=== PATIENT | male | born 1965 | race Two or more races ===

== ENCOUNTER 2017-02-12 11:00 | Inpatient (IN) | payer OTHER ==
[2017-02-12 11:39] VITALS: BMI 22.1
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
[2017-02-12] MEDS ORDERED: P-EPHED 60MG/TRIPROLIDI 2.5MG TABLET PO PRN (13:59)
[2017-02-12] MEDS ORDERED: guaiFENesin/D-METHORPHAN HB 10 ML UNIT-DOSE CUPS PO PRN (13:59)
[2017-02-12] MEDS ORDERED: MAG HYDROX/AL HYDROX/SIMETH 30 ML UNIT-DOSE CUP PO PRN (13:59)
[2017-02-12] MEDS ORDERED: ACETAMINOPHEN 325 MG TABLET (FP) PO PRN (13:59)
[2017-02-12] MEDS ORDERED: MAGNESIUM HYDROX 2400MG/30ML ORAL SUSPENSION 30 ML CUP PO PRN (13:59)
[2017-02-12] MEDS ORDERED: LOPERAMIDE HCL 2 MG CAPSULE PO PRN (13:59)
[2017-02-12] MEDS ORDERED: MAGNESIUM CITRATE 300 ML BOTTLE PO PRN (13:59)
[2017-02-12] MEDS ORDERED: IBUPROFEN 400 MG TABLET (FP) PO PRN (13:59)
[2017-02-12] MEDS ORDERED: MENTHOL/PHENOL 1 EACH UD MM PRN (13:59)
[2017-02-12] MEDS ORDERED: METHADONE HCL 10 MG TABLET (FOR DETOX USE ONLY) PO ONE ×2 (14:07→23:00)
[2017-02-12] MEDS: diazePAM 5 MG TABLET PO PRN ×2 (15:12→22:06)
[2017-02-12] MEDS: NICOTINE 21 MG/24 HOURS TOPICAL PATCH TD SCH (15:13)
[2017-02-12 17:30] LABS: URINE APPEARANCE CLEAR; URINE BILIRUBIN NEGATIVE (NEGATIVE); URINE BLOOD NEGATIVE (NEGATIVE); URINE COLOR YELLOW; URINE GLUCOSE (UA) NEGATIVE (NEGATIVE); URINE KETONE NEGATIVE (NEGATIVE); URINE NITRITE NEGATIVE (NEGATIVE); URINE PROTEIN NEGATIVE (NEGATIVE); URINE UROBILINOGEN NEGATIVE mg/dL (0.2-1.0)
[2017-02-12 19:29] LABS: URINE LEUK ESTERASE Negative (NEGATIVE)
[2017-02-12] MEDS: THIAMINE HCL 100 MG TABLET (FP) PO SCH (22:06)
[2017-02-13] MEDS: diazePAM 5 MG TABLET PO PRN ×4 (05:50→20:01)
[2017-02-13] MEDS ORDERED: METHADONE HCL 10 MG TABLET (FOR DETOX USE ONLY) PO ONE (10:00)
[2017-02-13 10:07] LABS: MCHC 32.3 g/dl (32.0-35.9); MEAN CELL VOLUME 89.7 fl (80-96); PLATELET COUNT 273 K/MM3 (134-434); RDW 14.4 % (11.9-15.9); WHITE BLOOD COUNT 12.4 K/mm3 (4.0-10.0)
[2017-02-13 10:12] LABS: ALBUMIN 4.3 g/dl (3.4-5.0); ANION GAP 9 (8-16); CALCIUM 9.3 mg/dL (8.5-10.1); CO2 28 mmol/L (21-32); CREATININE 1.2 mg/dL (0.7-1.3); GLUCOSE,RANDOM 90 mg/dL (74-106); SGOT/AST 26 U/L (15-37); SGPT/ALT 35 U/L (12-78)
[2017-02-13 10:14] LABS: ALK PHOS 62 U/L (45-117); BILIRUBIN,TOTAL 0.6 mg/dL (0.2-1.0); TOT PROT 7.9 g/dl (6.4-8.2)
[2017-02-13] MEDS: PRENATAL VITAMINS W/ FOLIC ACID TABLET (FP) PO SCH (10:19)
[2017-02-13] MEDS: NICOTINE 21 MG/24 HOURS TOPICAL PATCH TD SCH (10:19)
--- NOTE | 2017-02-13 11:14 | PN ---
BHS COWS - Scale Resting Pulse: 0= DC 80 or Below Sweatin= Chills/Flushing Restless Observation: 3= Extraneous Movement Pupil Size: 0= Normal to Room Light Bone or Joint Aches: 4=Acute Joint/Muscle Pain Runny Nose/ Eye Tearin= Nasal Congestion GI Upset > 30mins: 0= None Tremor Observation of Outstretched Hands: 1= Tremor [place], Not Seen Yawning Observation: 1= 1-2x During Session Anxiety or Irritability: 2=Irritable/Anxious Goose Flesh Skin: 0=Smooth Skin COWS Score: 13 BHS Progress Note (SOAP) Subjective: ANXIETY,SWEATS,FATIGUE. Objective: 02/13/17 11:14 Vital Signs Temperature 97.9 F 02/13/17 05:51 Pulse Rate 58 L 02/13/17 09:18 Respiratory Rate 18 02/13/17 09:18 Blood Pressure 141/95 02/13/17 09:18 O2 Sat by Pulse Oximetry (%) Laboratory Last Values WBC 12.4 K/mm3 (4.0-10.0) H 02/13/17 05:45 RBC 4.43 M/mm3 (4.00-5.60) 02/13/17 05:45 Hgb 12.8 GM/dL (11.7-16.9) 02/13/17 05:45 Hct 39.7 % (35.4-49) 02/13/17 05:45 MCV 89.7 fl (80-96) 02/13/17 05:45 MCH 29.0 pg (25.7-33.7) 02/13/17 05:45 MCHC 32.3 g/dl (32.0-35.9) 02/13/17 05:45 RDW 14.4 % (11.9-15.9) 02/13/17 05:45 Plt Count 273 K/MM3 (134-434) 02/13/17 05:45 MPV 9.0 fl (7.5-11.1) 02/13/17 05:45 Sodium 139 mmol/L (136-145) 02/13/17 05:45 Potassium 4.3 mmol/L (3.5-5.1) 02/13/17 05:45 Chloride 102 mmol/L (98-107) 02/13/17 05:45 Carbon Dioxide 28 mmol/L (21-32) 02/13/17 05:45 Anion Gap 9 (8-16) 02/13/17 05:45 BUN 10 mg/dL (7-18) 02/13/17 05:45 Creatinine 1.2 mg/dL (0.7-1.3) 02/13/17 05:45 Creat Clearance w eGFR > 60 (>60) 02/13/17 05:45 Random Glucose 90 mg/dL (74-106) 02/13/17 05:45 Calcium 9.3 mg/dL (8.5-10.1) 02/13/17 05:45 Total Bilirubin 0.6 mg/dL (0.2-1.0) D 02/13/17 05:45 AST 26 U/L (15-37) 02/13/17 05:45 ALT 35 U/L (12-78) D 02/13/17 05:45 Alkaline Phosphatase 62 U/L (45-117) 02/13/17 05:45 Total Protein 7.9 g/dl (6.4-8.2) 02/13/17 05:45 Albumin 4.3 g/dl (3.4-5.0) 02/13/17 05:45 Urine Color Yellow 02/12/17 15:00 Urine Appearance Clear 02/12/17 15:00 Urine pH 6.0 (5.0-8.0) 02/12/17 15:00 Ur Specific [place] 1.018 (1.001-1.035) 02/12/17 15:00 Urine Protein Negative (NEGATIVE) 02/12/17 15:00 Urine Glucose (UA) Negative (NEGATIVE) 02/12/17 15:00 Urine Ketones Negative (NEGATIVE) 02/12/17 15:00 Urine Blood Negative (NEGATIVE) 02/12/17 15:00 Urine Nitrite Negative (NEGATIVE) 02/12/17 15:00 Urine Bilirubin Negative (NEGATIVE) 02/12/17 15:00 Urine Urobilinogen Negative mg/dL (0.2-1.0) 02/12/17 15:00 Ur Leukocyte Esterase Negative (NEGATIVE) 02/12/17 15:00 Assessment: 02/13/17 11:14 WITHDRAWAL SX Plan: CONTINUE DETOX
--- NOTE | 2017-02-13 12:13 | EKG ---
Test Reason : Blood Pressure : / mmHG Vent. Rate : 053 BPM Atrial Rate : 053 BPM P-R Int : 144 ms QRS Dur : 098 ms QT Int : 412 ms P-R-T Axes : 070 069 049 degrees QTc Int : 386 ms SINUS BRADYCARDIA VOLTAGE CRITERIA FOR LEFT VENTRICULAR HYPERTROPHY ABNORMAL ECG NO PREVIOUS ECGS AVAILABLE Confirmed by LELIA BARROSO MD ([id number]) on 02/13/2017 12:13:12 PM Referred By: Confirmed By:LELIA BARROSO MD
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
[2017-02-13] MEDS: ZOLPIDEM TARTRATE 10 MG TABLET (PARK CARE ONLY) PO PRN (22:06)
[2017-02-13] MEDS: THIAMINE HCL 100 MG TABLET (FP) PO SCH (22:06)
[2017-02-14] MEDS: diazePAM 5 MG TABLET PO PRN ×4 (05:33→19:03)
[2017-02-14] MEDS ORDERED: METHADONE HCL 5 MG TABLET (FOR DETOX USE ONLY) PO ONE (10:00)
[2017-02-14] MEDS: NICOTINE 21 MG/24 HOURS TOPICAL PATCH TD SCH (10:42)
[2017-02-14] MEDS: PRENATAL VITAMINS W/ FOLIC ACID TABLET (FP) PO SCH (10:42)
--- NOTE | 2017-02-14 17:16 | PN ---
[facility] CIWA - CIWA Score Nausea/Vomitin-No Nausea/No Vomiting Muscle Tremors: 2 Anxiety: 4-Mod. Anxious/Guarded Agitation: 3 Paroxysmal Sweats: 3 Orientation: 0-Oriented Tacttile Disturbances: 3-Moderate Itch/Numb/Burn Auditory Disturbances: 0-None Visual Disturbances: 2-Mild Sensitivity Headache: 0-None Present CIWA-Ar Total Score: 17 BHS Progress Note (SOAP) Subjective: Constipation, Chills, Body Aches, Stomach Cramping, Sweating. Objective: PT. A & O X 3, OBSERVED AMBULATING ON UNIT. NO ACUTE DISTRESS. 02/14/17 17:15 Vital Signs Temperature 98.2 F 02/14/17 17:04 Pulse Rate 81 02/14/17 17:04 Respiratory Rate 18 02/14/17 17:04 Blood Pressure 123/78 02/14/17 17:04 O2 Sat by Pulse Oximetry (%) Laboratory Tests 02/12/17 02/13/17 02/13/17 15:00 05:45 05:45 WBC 12.4 H RBC 4.43 Hgb 12.8 Hct 39.7 MCV 89.7 MCH 29.0 MCHC 32.3 RDW 14.4 Plt Count 273 MPV 9.0 Sodium 139 Potassium 4.3 Chloride 102 Carbon Dioxide 28 Anion Gap 9 BUN 10 Creatinine 1.2 Creat Clearance w eGFR > 60 Random Glucose 90 Calcium 9.3 Total Bilirubin 0.6 D AST 26 ALT 35 D Alkaline Phosphatase 62 Total Protein 7.9 Albumin 4.3 Urine Color Yellow Urine Appearance Clear Urine pH 6.0 Ur Specific [place] 1.018 Urine Protein Negative Urine Glucose (UA) Negative Urine Ketones Negative Urine Blood Negative Urine Nitrite Negative Urine Bilirubin Negative Urine Urobilinogen Negative Ur Leukocyte Esterase Negative RPR Titer 02/13/17 05:45 WBC RBC Hgb Hct MCV MCH MCHC RDW Plt Count MPV Sodium Potassium Chloride Carbon Dioxide Anion Gap BUN Creatinine Creat Clearance w eGFR Random Glucose Calcium Total Bilirubin AST ALT Alkaline Phosphatase Total Protein Albumin Urine Color Urine Appearance Urine pH Ur Specific [place] Urine Protein Urine Glucose (UA) Urine Ketones Urine Blood Urine Nitrite Urine Bilirubin Urine Urobilinogen Ur Leukocyte Esterase RPR Titer Nonreactive LABS NOTED. Assessment: 02/14/17 17:15 WITHDRAWAL SYMPTOMS. Plan: CONTINUE DETOX. INCREASE DAILY PO FLUID INTAKE. PRN MOM FOR CONSTIPATION.
[2017-02-14] MEDS: THIAMINE HCL 100 MG TABLET (FP) PO SCH (22:18)
[2017-02-14] MEDS: ZOLPIDEM TARTRATE 10 MG TABLET (PARK CARE ONLY) PO PRN (22:18)
[2017-02-15] MEDS: diazePAM 5 MG TABLET PO PRN ×2 (05:39→10:37)
[2017-02-15] MEDS ORDERED: METHADONE HCL 5 MG TABLET (FOR DETOX USE ONLY) PO ONE (10:00)
[2017-02-15] MEDS: PRENATAL VITAMINS W/ FOLIC ACID TABLET (FP) PO SCH (10:37)
[2017-02-15] MEDS: NICOTINE 21 MG/24 HOURS TOPICAL PATCH TD SCH (10:38)
--- NOTE | 2017-02-15 14:40 | PN ---
BHS Progress Note (SOAP) Subjective: Anxious, Sweating. Objective: PT. A & O X 3, OBSERVED AMBULATING ON UNIT. NO ACUTE DISTRESS. 02/15/17 14:38 Vital Signs Temperature 98.3 F 02/15/17 13:40 Pulse Rate 71 02/15/17 13:40 Respiratory Rate 20 02/15/17 13:40 Blood Pressure 141/89 02/15/17 13:40 O2 Sat by Pulse Oximetry (%) Laboratory Tests 02/12/17 02/13/17 02/13/17 15:00 05:45 05:45 WBC 12.4 H RBC 4.43 Hgb 12.8 Hct 39.7 MCV 89.7 MCH 29.0 MCHC 32.3 RDW 14.4 Plt Count 273 MPV 9.0 Sodium 139 Potassium 4.3 Chloride 102 Carbon Dioxide 28 Anion Gap 9 BUN 10 Creatinine 1.2 Creat Clearance w eGFR > 60 Random Glucose 90 Calcium 9.3 Total Bilirubin 0.6 D AST 26 ALT 35 D Alkaline Phosphatase 62 Total Protein 7.9 Albumin 4.3 Urine Color Yellow Urine Appearance Clear Urine pH 6.0 Ur Specific [place] 1.018 Urine Protein Negative Urine Glucose (UA) Negative Urine Ketones Negative Urine Blood Negative Urine Nitrite Negative Urine Bilirubin Negative Urine Urobilinogen Negative Ur Leukocyte Esterase Negative RPR Titer 02/13/17 05:45 WBC RBC Hgb Hct MCV MCH MCHC RDW Plt Count MPV Sodium Potassium Chloride Carbon Dioxide Anion Gap BUN Creatinine Creat Clearance w eGFR Random Glucose Calcium Total Bilirubin AST ALT Alkaline Phosphatase Total Protein Albumin Urine Color Urine Appearance Urine pH Ur Specific [place] Urine Protein Urine Glucose (UA) Urine Ketones Urine Blood Urine Nitrite Urine Bilirubin Urine Urobilinogen Ur Leukocyte Esterase RPR Titer Nonreactive LABS NOTED. Assessment: 02/15/17 14:38 WITHDRAWAL SYMPTOMS. Plan: CONTINUE DETOX.
[2017-02-15] MEDS: hydrOXYzine PAMOATE 50 MG CAPSULE (FP) PO PRN (14:53)
[2017-02-15] MEDS: ZOLPIDEM TARTRATE 10 MG TABLET (PARK CARE ONLY) PO PRN (22:18)
[2017-02-15] MEDS: THIAMINE HCL 100 MG TABLET (FP) PO SCH (22:18)
[2017-02-16] MEDS ORDERED: METHADONE HCL 10 MG TABLET (FOR DETOX USE ONLY) PO ONE (10:00)
[2017-02-16] MEDS: PRENATAL VITAMINS W/ FOLIC ACID TABLET (FP) PO SCH (10:25)
[2017-02-16] MEDS: NICOTINE 21 MG/24 HOURS TOPICAL PATCH TD SCH (10:25)
--- NOTE | 2017-02-16 13:02 | PN ---
BHS Progress Note (SOAP) Subjective: Stomach Cramping, Nausea, Diarrhea, Anxious. Objective: PT. A & O X 2 (UNCERTAIN ABOUT DAY / DATE). PT. OBSERVED AMBULATING ON UNIT. 02/16/17 12:57 Vital Signs Temperature 97.5 F L 02/16/17 09:14 Pulse Rate 66 02/16/17 09:14 Respiratory Rate 20 02/16/17 09:14 Blood Pressure 140/95 02/16/17 09:14 O2 Sat by Pulse Oximetry (%) Laboratory Tests 02/12/17 02/13/17 02/13/17 15:00 05:45 05:45 WBC 12.4 H RBC 4.43 Hgb 12.8 Hct 39.7 MCV 89.7 MCH 29.0 MCHC 32.3 RDW 14.4 Plt Count 273 MPV 9.0 Sodium 139 Potassium 4.3 Chloride 102 Carbon Dioxide 28 Anion Gap 9 BUN 10 Creatinine 1.2 Creat Clearance w eGFR > 60 Random Glucose 90 Calcium 9.3 Total Bilirubin 0.6 D AST 26 ALT 35 D Alkaline Phosphatase 62 Total Protein 7.9 Albumin 4.3 Urine Color Yellow Urine Appearance Clear Urine pH 6.0 Ur Specific [place] 1.018 Urine Protein Negative Urine Glucose (UA) Negative Urine Ketones Negative Urine Blood Negative Urine Nitrite Negative Urine Bilirubin Negative Urine Urobilinogen Negative Ur Leukocyte Esterase Negative RPR Titer 02/13/17 05:45 WBC RBC Hgb Hct MCV MCH MCHC RDW Plt Count MPV Sodium Potassium Chloride Carbon Dioxide Anion Gap BUN Creatinine Creat Clearance w eGFR Random Glucose Calcium Total Bilirubin AST ALT Alkaline Phosphatase Total Protein Albumin Urine Color Urine Appearance Urine pH Ur Specific [place] Urine Protein Urine Glucose (UA) Urine Ketones Urine Blood Urine Nitrite Urine Bilirubin Urine Urobilinogen Ur Leukocyte Esterase RPR Titer Nonreactive LABS NOTED. Assessment: 02/16/17 13:02 WITHDRAWAL SYMPTOMS. Plan: CONTINUE DETOX.
[2017-02-16] MEDS: ZOLPIDEM TARTRATE 10 MG TABLET (PARK CARE ONLY) PO PRN (21:59)
[2017-02-16] MEDS: THIAMINE HCL 100 MG TABLET (FP) PO SCH (22:28)
[2017-02-16] MEDS: hydrOXYzine PAMOATE 50 MG CAPSULE (FP) PO PRN (22:28)
[2017-02-16] MEDS ORDERED: cloNIDine HCL 0.1 MG TABLET PO ONE (23:37)
[2017-02-17] MEDS ORDERED: METHADONE HCL 5 MG TABLET (FOR DETOX USE ONLY) PO ONE (06:00)
[2017-02-17 09:51] VITALS: BP 129/96; PULSE 64; TEMP 99.2
[2017-02-17] MEDS: NICOTINE 21 MG/24 HOURS TOPICAL PATCH TD SCH (10:17)
[2017-02-17] MEDS: PRENATAL VITAMINS W/ FOLIC ACID TABLET (FP) PO SCH (10:17)
--- NOTE | 2017-02-17 12:33 | DS ---
[facility] Detox Discharge Summary Admission Date: 02/12/17 Discharge Date: 02/17/17 - History Present History: Alcohol Dependence, Cannabis Dependence, Sedative Dependence Pertinent Past History: Denies - Physical Exam Results Vital Signs: Vital Signs Temperature 99.2 F 02/17/17 09:50 Pulse Rate 64 02/17/17 09:50 Respiratory Rate 18 02/17/17 09:50 Blood Pressure 129/96 02/17/17 09:50 O2 Sat by Pulse Oximetry (%) Pertinent Admission Physical Exam Findings: Withdrawal symptoms - Treatment Hospital Course: Detox Protocol Followed, Detoxed Safely, Responded well, Discharged Condition Good - Medication Discharge Medications: Ambulatory Orders NK [No Known Home Medication] 02/12/17 - Diagnosis (1) Benzodiazepine dependence Status: Acute (2) Cannabis dependence Status: Chronic (3) Depression Status: Chronic (4) Insomnia secondary to depression with anxiety Status: Chronic (5) Nicotine dependence Status: Chronic Qualifiers: Nicotine product type: cigarettes Substance use status: in withdrawal Qualified Code(s): F17.213 - Nicotine dependence, cigarettes, with withdrawal (6) Opioid dependence with withdrawal Status: Chronic - AMA Did Patient Leave Against Medical Advice: No (F/U with PCP in 1-2 weeks)
== END 2017-02-17 10:47 | disposition other institution (70) | DRG 773 ==
LOC: YASAS 11:00 → Y3N 13:45
PROVIDERS: ADMIT Internal Medicine; ATTEND Internal Medicine
PROC: HZ2ZZZZ Detoxification Services for Substance Abuse Treatment (ICD-10-PCS; principal; 2017-02-12)
DX: F11.23 Opioid dependence with withdrawal (principal); F13.20 Sedative, hypnotic or anxiolytic dependence, uncomplicated; F12.20 Cannabis dependence, uncomplicated; F17.213 Nicotine dependence, cigarettes, with withdrawal; F32.9 Major depressive disorder, single episode, unspecified; F41.9 Anxiety disorder, unspecified; F51.05 Insomnia due to other mental disorder; R63.4 Abnormal weight loss; Z68.22 Body mass index [BMI] 22.0-22.9, adult; Z59.0 Homelessness
CPT/HCPCS: 36415; 80053; 81003; 85027; 86593; 93005; 93010

== ENCOUNTER 2017-02-17 12:05 | Inpatient (IN) | payer OTHER ==
[2017-02-17 13:21] VITALS: BMI 23.3
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
[2017-02-17] MEDS ORDERED: MAGNESIUM HYDROX 2400MG/30ML ORAL SUSPENSION 30 ML CUP PO PRN (14:16)
[2017-02-17] MEDS ORDERED: LOPERAMIDE HCL 2 MG CAPSULE PO PRN (14:16)
[2017-02-17] MEDS ORDERED: IBUPROFEN 400 MG TABLET (FP) PO PRN (14:16)
[2017-02-17] MEDS ORDERED: MAGNESIUM CITRATE 300 ML BOTTLE PO PRN (14:16)
[2017-02-17] MEDS ORDERED: NICOTINE POLACRILEX 2 MG GUM BUC PRN (14:16)
[2017-02-17] MEDS ORDERED: P-EPHED 60MG/TRIPROLIDI 2.5MG TABLET PO PRN (14:16)
[2017-02-17] MEDS ORDERED: ACETAMINOPHEN 325 MG TABLET (FP) PO PRN (14:16)
[2017-02-17] MEDS ORDERED: MENTHOL/PHENOL 1 EACH UD MM PRN (14:16)
[2017-02-17] MEDS ORDERED: guaiFENesin/D-METHORPHAN HB 10 ML UNIT-DOSE CUPS PO PRN (14:16)
[2017-02-17] MEDS ORDERED: MAG HYDROX/AL HYDROX/SIMETH 30 ML UNIT-DOSE CUP PO PRN (14:16)
--- NOTE | 2017-02-17 14:23 | HP ---
[facility] Rehab Assess/Revision - Admission History Admitted to Rehab from: [facility] Date of Admission to Rehab: 02/17/17 - Vital signs Vital Signs: Vital Signs Period Temp Pulse Resp BP Sys/Hopper Pulse Ox Last 24 Hr 98.1 F 65 20 142/89 - Findings Detox History & Physical reviewed: Yes Concur with findings: Yes Inpatient Rehab Admission - Initial Determination Are CD services needed?: Yes Free of communicable disease: Yes Not in need of hospitalization: Yes - Rehab Admission Criteria Previous failed treatment: Yes Poor recovery environment: Yes Comorbidities: Yes Lacks judgement: Yes Patient is meeting Inpatient Rehab admission criteria:: Yes
[2017-02-17] MEDS: THIAMINE HCL 100 MG TABLET (FP) PO SCH (21:38)
[2017-02-17] MEDS ORDERED: hydrOXYzine PAMOATE 50 MG CAPSULE (FP) PO ONE (23:21)
[2017-02-18] MEDS: PRENATAL VITAMINS W/ FOLIC ACID TABLET (FP) PO SCH (10:13)
[2017-02-18] MEDS: NICOTINE 21 MG/24 HOURS TOPICAL PATCH TD SCH (10:13)
[2017-02-18 11:59] LABS: HIV 1 & 2 AB NEGATIVE; HIV 1 AGp24 NEGATIVE
[2017-02-18] MEDS: GABAPENTIN 300 MG CAPSULE (FP) PO SCH ×2 (14:25→22:09)
[2017-02-18] MEDS: HYDROCHLOROTHIAZIDE 12.5 MG CAPSULE (FP) PO SCH (16:52)
[2017-02-18] MEDS ORDERED: SUVOREXANT 10 MG TABLET PO PRN (22:00)
[2017-02-18] MEDS: THIAMINE HCL 100 MG TABLET (FP) PO SCH (22:09)
[2017-02-18] MEDS: OLANZapine 10 MG TABLET PO SCH (22:09)
[2017-02-19] MEDS: GABAPENTIN 300 MG CAPSULE (FP) PO SCH ×3 (06:21→22:00)
[2017-02-19] MEDS: PRENATAL VITAMINS W/ FOLIC ACID TABLET (FP) PO SCH (09:56)
[2017-02-19] MEDS: HYDROCHLOROTHIAZIDE 12.5 MG CAPSULE (FP) PO SCH (09:56)
[2017-02-19] MEDS: NICOTINE 21 MG/24 HOURS TOPICAL PATCH TD SCH (09:56)
[2017-02-19] MEDS: OLANZapine 10 MG TABLET PO SCH (22:00)
[2017-02-19] MEDS: THIAMINE HCL 100 MG TABLET (FP) PO SCH (22:00)
[2017-02-20] MEDS: GABAPENTIN 300 MG CAPSULE (FP) PO SCH (06:31)
[2017-02-20] MEDS ORDERED: cloNIDine HCL 0.1 MG TABLET PO ONE (06:40)
[2017-02-20] MEDS: NICOTINE 21 MG/24 HOURS TOPICAL PATCH TD SCH (10:11)
[2017-02-20] MEDS: PRENATAL VITAMINS W/ FOLIC ACID TABLET (FP) PO SCH (10:11)
[2017-02-20] MEDS: HYDROCHLOROTHIAZIDE 12.5 MG CAPSULE (FP) PO SCH (10:11)
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
[2017-02-20] MEDS: NAPROXEN 500 MG TABLET (FP) PO SCH ×2 (12:04→22:04)
[2017-02-20] MEDS: PANTOPRAZOLE 40 MG TABLET (FP) PO SCH (12:04)
[2017-02-20] MEDS: MAG HYDROX/ALH/SMC/DPHA/LIDO 240 ML MOUTHWASH MM SCH ×4 (13:40→23:37)
[2017-02-20] MEDS ORDERED: GABAPENTIN 300 MG CAPSULE (FP) PO SCH (14:00)
[2017-02-20] MEDS: GABAPENTIN 400 MG CAPSULE (FP) PO SCH ×2 (15:26→22:04)
[2017-02-20] MEDS: THIAMINE HCL 100 MG TABLET (FP) PO SCH (22:04)
[2017-02-20] MEDS: OLANZapine 10 MG TABLET PO SCH (22:04)
[2017-02-21] MEDS: MAG HYDROX/ALH/SMC/DPHA/LIDO 240 ML MOUTHWASH MM SCH ×4 (06:32→23:50)
[2017-02-21] MEDS: GABAPENTIN 400 MG CAPSULE (FP) PO SCH ×3 (06:32→21:51)
[2017-02-21] MEDS: PRENATAL VITAMINS W/ FOLIC ACID TABLET (FP) PO SCH (09:57)
[2017-02-21] MEDS: NICOTINE 21 MG/24 HOURS TOPICAL PATCH TD SCH (09:57)
[2017-02-21] MEDS: HYDROCHLOROTHIAZIDE 12.5 MG CAPSULE (FP) PO SCH (09:57)
[2017-02-21] MEDS: PANTOPRAZOLE 40 MG TABLET (FP) PO SCH (09:57)
[2017-02-21] MEDS: NAPROXEN 500 MG TABLET (FP) PO SCH ×2 (09:57→21:51)
[2017-02-21] MEDS: THIAMINE HCL 100 MG TABLET (FP) PO SCH (21:51)
[2017-02-21] MEDS: OLANZapine 10 MG TABLET PO SCH (21:51)
[2017-02-22] MEDS: GABAPENTIN 400 MG CAPSULE (FP) PO SCH ×3 (06:15→21:16)
[2017-02-22] MEDS: MAG HYDROX/ALH/SMC/DPHA/LIDO 240 ML MOUTHWASH MM SCH ×4 (06:15→23:43)
[2017-02-22] MEDS: PANTOPRAZOLE 40 MG TABLET (FP) PO SCH (10:15)
[2017-02-22] MEDS: PRENATAL VITAMINS W/ FOLIC ACID TABLET (FP) PO SCH (10:15)
[2017-02-22] MEDS: NAPROXEN 500 MG TABLET (FP) PO SCH ×2 (10:16→21:16)
[2017-02-22] MEDS: HYDROCHLOROTHIAZIDE 12.5 MG CAPSULE (FP) PO SCH (10:16)
[2017-02-22] MEDS: NICOTINE 21 MG/24 HOURS TOPICAL PATCH TD SCH (10:16)
[2017-02-22] MEDS: THIAMINE HCL 100 MG TABLET (FP) PO SCH (21:16)
[2017-02-22] MEDS: SUVOREXANT 10 MG TABLET PO PRN (21:16)
[2017-02-22] MEDS: OLANZapine 10 MG TABLET PO SCH (21:16)
[2017-02-23] MEDS: MAG HYDROX/ALH/SMC/DPHA/LIDO 240 ML MOUTHWASH MM SCH ×4 (06:28→23:06)
[2017-02-23] MEDS: GABAPENTIN 400 MG CAPSULE (FP) PO SCH ×3 (06:28→22:00)
[2017-02-23] MEDS: PRENATAL VITAMINS W/ FOLIC ACID TABLET (FP) PO SCH (09:58)
[2017-02-23] MEDS: NICOTINE 21 MG/24 HOURS TOPICAL PATCH TD SCH (09:58)
[2017-02-23] MEDS: PANTOPRAZOLE 40 MG TABLET (FP) PO SCH (09:58)
[2017-02-23] MEDS: HYDROCHLOROTHIAZIDE 12.5 MG CAPSULE (FP) PO SCH (09:58)
[2017-02-23] MEDS: NAPROXEN 500 MG TABLET (FP) PO SCH ×2 (09:58→22:00)
[2017-02-23] MEDS: THIAMINE HCL 100 MG TABLET (FP) PO SCH (22:00)
[2017-02-23] MEDS: OLANZapine 10 MG TABLET PO SCH (22:00)
[2017-02-24] MEDS: MAG HYDROX/ALH/SMC/DPHA/LIDO 240 ML MOUTHWASH MM SCH ×4 (06:19→23:05)
[2017-02-24] MEDS: GABAPENTIN 400 MG CAPSULE (FP) PO SCH ×3 (06:19→21:51)
[2017-02-24] MEDS ORDERED: SUVOREXANT 10 MG TABLET PO PRN (08:28)
[2017-02-24] MEDS: PRENATAL VITAMINS W/ FOLIC ACID TABLET (FP) PO SCH (10:08)
[2017-02-24] MEDS: PANTOPRAZOLE 40 MG TABLET (FP) PO SCH (10:08)
[2017-02-24] MEDS: NAPROXEN 500 MG TABLET (FP) PO SCH ×2 (10:08→21:51)
[2017-02-24] MEDS: HYDROCHLOROTHIAZIDE 12.5 MG CAPSULE (FP) PO SCH (10:08)
[2017-02-24] MEDS: NICOTINE 21 MG/24 HOURS TOPICAL PATCH TD SCH (10:08)
[2017-02-24] MEDS: THIAMINE HCL 100 MG TABLET (FP) PO SCH (21:51)
[2017-02-24] MEDS: OLANZapine 10 MG TABLET PO SCH (21:51)
[2017-02-24] MEDS: SUVOREXANT 10 MG TABLET PO PRN (21:53)
[2017-02-25] MEDS: GABAPENTIN 400 MG CAPSULE (FP) PO SCH ×3 (06:27→21:40)
[2017-02-25] MEDS: MAG HYDROX/ALH/SMC/DPHA/LIDO 240 ML MOUTHWASH MM SCH ×4 (06:28→23:02)
[2017-02-25] MEDS: PRENATAL VITAMINS W/ FOLIC ACID TABLET (FP) PO SCH (10:01)
[2017-02-25] MEDS: NAPROXEN 500 MG TABLET (FP) PO SCH ×2 (10:01→21:40)
[2017-02-25] MEDS: PANTOPRAZOLE 40 MG TABLET (FP) PO SCH (10:01)
[2017-02-25] MEDS: HYDROCHLOROTHIAZIDE 12.5 MG CAPSULE (FP) PO SCH (10:01)
[2017-02-25] MEDS: NICOTINE 21 MG/24 HOURS TOPICAL PATCH TD SCH (10:01)
[2017-02-25] MEDS: THIAMINE HCL 100 MG TABLET (FP) PO SCH (21:40)
[2017-02-25] MEDS: OLANZapine 10 MG TABLET PO SCH (21:40)
[2017-02-26] MEDS: GABAPENTIN 400 MG CAPSULE (FP) PO SCH ×2 (06:18→13:30)
[2017-02-26] MEDS: MAG HYDROX/ALH/SMC/DPHA/LIDO 240 ML MOUTHWASH MM SCH ×2 (06:18→13:30)
[2017-02-26] MEDS: HYDROCHLOROTHIAZIDE 12.5 MG CAPSULE (FP) PO SCH (10:17)
[2017-02-26] MEDS: PANTOPRAZOLE 40 MG TABLET (FP) PO SCH (10:17)
[2017-02-26] MEDS: NAPROXEN 500 MG TABLET (FP) PO SCH (10:18)
[2017-02-26] MEDS: PRENATAL VITAMINS W/ FOLIC ACID TABLET (FP) PO SCH (10:18)
[2017-02-26] MEDS: NICOTINE 21 MG/24 HOURS TOPICAL PATCH TD SCH (10:18)
--- NOTE | 2017-02-26 15:05 | PN ---
BHS Progress Note (SOAP) Subjective: c/o athletes foot Objective: 02/26/17 15:04 Vital Signs - 24 hr 02/26/17 02/26/17 02/26/17 00:30 03:30 06:41 Temperature 97.8 F Pulse Rate 72 Respiratory 18 18 18 Rate Blood Pressure 135/84 02/26/17 10:00 Temperature Pulse Rate 86 Respiratory 18 Rate Blood Pressure 159/83 Laboratory Tests 02/18/17 07:00 HIV 1&2 Antibody Screen Negative HIV P24 Antigen Negative labs reviewed, hypertension Assessment: 02/26/17 15:05 essential hypertension, athletes foot start tinactin, aveeno soap
[2017-02-26] MEDS ORDERED: COLLOIDAL OATMEAL 1 BAR EACH TP PRN (15:30)
[2017-02-26] MEDS: HYDROCHLOROTHIAZIDE 25 MG TABLET (FP) PO SCH (17:29)
[2017-02-26] MEDS: NICOTINE 14 MG/24 HOURS TOPICAL PATCH TD SCH (17:30)
[2017-02-26] MEDS: THIAMINE HCL 100 MG TABLET (FP) PO SCH (21:22)
[2017-02-26] MEDS: OLANZapine 10 MG TABLET PO SCH (21:22)
[2017-02-26] MEDS: GABAPENTIN 100 MG CAPSULE (FP) PO SCH (21:23)
[2017-02-26] MEDS: TOLNAFTATE 1% CREAM 15 GM TUBE TP SCH (21:25)
[2017-02-27] MEDS: GABAPENTIN 100 MG CAPSULE (FP) PO SCH (06:07)
[2017-02-27 07:10] VITALS: TEMP 98.4
[2017-02-27] MEDS: NICOTINE 14 MG/24 HOURS TOPICAL PATCH TD SCH (10:05)
[2017-02-27] MEDS: HYDROCHLOROTHIAZIDE 25 MG TABLET (FP) PO SCH (10:05)
[2017-02-27] MEDS: PRENATAL VITAMINS W/ FOLIC ACID TABLET (FP) PO SCH (10:05)
[2017-02-27] MEDS: TOLNAFTATE 1% CREAM 15 GM TUBE TP SCH (10:05)
[2017-02-27 10:20] VITALS: BP 157/94; PULSE 84
[2017-02-27] MEDS ORDERED: amLODIPine BESYLATE 5 MG TABLET (FP) PO ONE (11:45)
[2017-02-27] MEDS ORDERED: amLODIPine BESYLATE 5 MG TABLET (FP) PO SCH (11:45)
== END 2017-02-27 12:10 | disposition home or self-care (01) | DRG 772 ==
LOC: YASAS 12:05 → Y3W 12:07
PROVIDERS: ADMIT Psychiatry & Neurology Psychiatry; ATTEND Psychiatry & Neurology Psychiatry
PROC: HZ42ZZZ Group Counseling for Substance Abuse Treatment, Cognitive-Behavioral (ICD-10-PCS; principal; 2017-02-17)
DX: F11.20 Opioid dependence, uncomplicated (principal); F13.20 Sedative, hypnotic or anxiolytic dependence, uncomplicated; F12.20 Cannabis dependence, uncomplicated; F17.210 Nicotine dependence, cigarettes, uncomplicated; F31.9 Bipolar disorder, unspecified; F60.2 Antisocial personality disorder; F19.24 Other psychoactive substance dependence with psychoactive substance-induced mood disorder; F19.282 Other psychoactive substance dependence with psychoactive substance-induced sleep disorder; I10 Essential (primary) hypertension; B35.3 Tinea pedis; K05.6 Periodontal disease, unspecified; M54.5 Low back pain; G89.29 Other chronic pain; M54.30 Sciatica, unspecified side; Z87.828 Personal history of other (healed) physical injury and trauma
CPT/HCPCS: 36415; 87389

== ENCOUNTER 2017-07-04 12:08 | Inpatient (IN) | payer OTHER ==
[2017-07-04 12:59] VITALS: BMI 22.4
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
[2017-07-04] MEDS ORDERED: IBUPROFEN 400 MG TABLET (FP) PO PRN (15:52)
[2017-07-04] MEDS ORDERED: LOPERAMIDE HCL 2 MG CAPSULE PO PRN (15:52)
[2017-07-04] MEDS ORDERED: MAG HYDROX/AL HYDROX/SIMETH 30 ML UNIT-DOSE CUP PO PRN (15:52)
[2017-07-04] MEDS ORDERED: MENTHOL/PHENOL 1 EACH UD MM PRN (15:52)
[2017-07-04] MEDS ORDERED: guaiFENesin/D-METHORPHAN HB 10 ML UNIT-DOSE CUPS PO PRN (15:52)
[2017-07-04] MEDS ORDERED: MAGNESIUM CITRATE 300 ML BOTTLE PO PRN (15:52)
[2017-07-04] MEDS ORDERED: P-EPHED 60MG/TRIPROLIDI 2.5MG TABLET PO PRN (15:52)
[2017-07-04] MEDS ORDERED: ACETAMINOPHEN 325 MG TABLET (FP) PO PRN (15:52)
[2017-07-04] MEDS ORDERED: MAGNESIUM HYDROX 2400MG/30ML ORAL SUSPENSION 30 ML CUP PO PRN (15:52)
[2017-07-04] MEDS ORDERED: COLLOIDAL OATMEAL 1 BAR EACH TP PRN (15:57)
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
[2017-07-04] MEDS ORDERED: METHADONE HCL 10 MG TABLET (FOR DETOX USE ONLY) PO ONE ×2 (16:30→23:00)
[2017-07-04] MEDS: diazePAM 5 MG TABLET PO PRN ×2 (17:48→22:22)
[2017-07-04] MEDS: THIAMINE HCL 100 MG TABLET (FP) PO SCH (22:22)
[2017-07-04] MEDS: QUEtiapine FUMARATE 100 MG TABLET (FP) PO SCH (22:22)
[2017-07-04] MEDS: CYCLOBENZAPRINE HCL 10 MG TABLET (FP) PO PRN (22:23)
[2017-07-04] MEDS: cloNIDine HCL 0.1 MG TABLET PO SCH (22:23)
[2017-07-04 23:01] LABS: URINE APPEARANCE CLEAR; URINE BILIRUBIN NEGATIVE (<2.0 mg/dL); URINE BLOOD NEGATIVE (NEGATIVE); URINE COLOR STRAW; URINE GLUCOSE (UA) NEGATIVE (NEGATIVE); URINE KETONE NEGATIVE (NEGATIVE); URINE LEUK ESTERASE NEGATIVE (NEGATIVE); URINE NITRITE NEGATIVE (NEGATIVE); URINE PROTEIN NEGATIVE (NEGATIVE); URINE UROBILINOGEN NEGATIVE mg/dL (0.2-1.0)
[2017-07-05] MEDS ORDERED: METHADONE HCL 10 MG TABLET (FOR DETOX USE ONLY) PO ONE (10:00)
[2017-07-05 10:23] LABS: HEMATOCRIT 36.2 % (35.4-49); MCH 29.9 pg (25.7-33.7); MCHC 33.1 g/dl (32.0-35.9); MEAN CELL VOLUME 90.4 fl (80-96); MEAN PLT VOLUME 9.2 fl (7.5-11.1); PLATELET COUNT 270 K/MM3 (134-434); RDW 15.2 % (11.9-15.9); WHITE BLOOD COUNT 9.6 K/mm3 (4.0-10.0)
--- NOTE | 2017-07-05 10:28 | PN ---
BHS COWS - Scale Resting Pulse: 1= [place] 81-100 Sweatin= Chills/Flushing Restless Observation: 1= Difficult to Sit Still Pupil Size: 1= Pupils >than Normal Bone or Joint Aches: 1= Mild Discomfort Runny Nose/ Eye Tearin= Nasal Congestion GI Upset > 30mins: 2= Nausea/Diarrhea Tremor Observation of Outstretched Hands: 1= Tremor [place], Not Seen Yawning Observation: 1= 1-2x During Session Anxiety or Irritability: 2=Irritable/Anxious Goose Flesh Skin: 3=Piloerection COWS Score: 15 BHS Progress Note (SOAP) Subjective: nausea, sweats, interrupted sleep, anxiety, tremors Objective: 07/05/17 10:28 Vital Signs - 24 hr 07/04/17 07/04/17 07/05/17 12:39 18:03 00:30 Temperature 98.8 F 98.1 F Pulse Rate 57 L 52 L Respiratory 18 18 18 Rate Blood Pressure 152/97 165/99 07/05/17 07/05/17 03:30 05:30 Temperature 97.9 F Pulse Rate 51 L Respiratory 18 18 Rate Blood Pressure 137/87 Laboratory Tests 07/04/17 17:23 Urine Color Straw Urine Appearance Clear Urine pH 6.0 Ur Specific [place] 1.006 Urine Protein Negative Urine Glucose (UA) Negative Urine Ketones Negative Urine Blood Negative Urine Nitrite Negative Urine Bilirubin Negative Urine Urobilinogen Negative Ur Leukocyte Esterase Negative labs still pending Assessment: 07/05/17 10:28 withdrawal sx - cont detox, luids, encourage ambualtion, check labs
[2017-07-05 10:29] LABS: CHLORIDE 104 mmol/L (98-107); POTASSIUM 4.1 mmol/L (3.5-5.1); SODIUM 140 mmol/L (136-145)
[2017-07-05 10:48] LABS: ALBUMIN 4.3 g/dl (3.4-5.0); ALK PHOS 73 U/L (45-117); ANION GAP 8 (8-16); BILIRUBIN,TOTAL 0.2 mg/dL (0.2-1.0); BLOOD UREA NITROGEN 8 mg/dL (7-18); CALCIUM 9.3 mg/dL (8.5-10.1); CO2 28 mmol/L (21-32); CREATININE 1.1 mg/dL (0.7-1.3); GLUCOSE,RANDOM 92 mg/dL (74-106); SGOT/AST 26 U/L (15-37); SGPT/ALT 40 U/L (12-78); TOT PROT 7.7 g/dl (6.4-8.2)
[2017-07-05] MEDS: HYDROCHLOROTHIAZIDE 25 MG TABLET (FP) PO SCH (10:52)
[2017-07-05] MEDS: cloNIDine HCL 0.1 MG TABLET PO SCH ×2 (10:52→22:12)
[2017-07-05] MEDS: PRENATAL VITAMINS W/ FOLIC ACID TABLET (FP) PO SCH (10:53)
[2017-07-05] MEDS: diazePAM 5 MG TABLET PO PRN ×3 (10:53→22:12)
[2017-07-05] MEDS: hydrOXYzine PAMOATE 50 MG CAPSULE (FP) PO PRN (13:53)
[2017-07-05] MEDS: MELATONIN 5 MG TABLETS PO PRN (22:12)
[2017-07-05] MEDS: QUEtiapine FUMARATE 100 MG TABLET (FP) PO SCH (22:12)
[2017-07-05] MEDS: THIAMINE HCL 100 MG TABLET (FP) PO SCH (22:12)
[2017-07-06] MEDS ORDERED: METHADONE HCL 5 MG TABLET (FOR DETOX USE ONLY) PO ONE (10:00)
[2017-07-06] MEDS: HYDROCHLOROTHIAZIDE 25 MG TABLET (FP) PO SCH (10:13)
[2017-07-06] MEDS: cloNIDine HCL 0.1 MG TABLET PO SCH ×2 (10:13→22:09)
[2017-07-06] MEDS: PRENATAL VITAMINS W/ FOLIC ACID TABLET (FP) PO SCH (10:13)
--- NOTE | 2017-07-06 10:39 | EKG ---
Test Reason : Blood Pressure : / mmHG Vent. Rate : 048 BPM Atrial Rate : 048 BPM P-R Int : 156 ms QRS Dur : 092 ms QT Int : 412 ms P-R-T Axes : 052 064 039 degrees QTc Int : 368 ms SINUS BRADYCARDIA OTHERWISE NORMAL ECG WHEN COMPARED WITH ECG OF 12-FEB-2017 15:52, NO SIGNIFICANT CHANGE WAS FOUND Confirmed by LELIA BARROSO MD ([id number]) on 07/06/2017 10:38:47 AM Referred By: Confirmed By:LELIA BARROSO MD
--- NOTE | 2017-07-06 12:52 | PN ---
BHS COWS - Scale Resting Pulse: 0= [place] 80 or Below Sweatin= Chills/Flushing Restless Observation: 3= Extraneous Movement Pupil Size: 0= Normal to Room Light Bone or Joint Aches: 1= Mild Discomfort Runny Nose/ Eye Tearin= Nasal Congestion GI Upset > 30mins: 2= Nausea/Diarrhea Tremor Observation of Outstretched Hands: 2= Slight Tremor Visible Yawning Observation: 0= None Anxiety or Irritability: 2=Irritable/Anxious Goose Flesh Skin: 0=Smooth Skin COWS Score: 12 BHS Progress Note (SOAP) Subjective: Irritable, tremors, sleep interruption Objective: 07/06/17 12:51 Vital Signs 07/06/17 07/06/17 06:00 10:00 Temperature 98.1 F 97.5 F L Pulse Rate 46 L 58 L Respiratory 18 18 Rate Blood Pressure 139/87 143/91 Laboratory Last Values WBC 9.6 K/mm3 (4.0-10.0) 07/05/17 05:50 RBC 4.00 M/mm3 (4.00-5.60) 07/05/17 05:50 Hgb 12.0 GM/dL (11.7-16.9) 07/05/17 05:50 Hct 36.2 % (35.4-49) 07/05/17 05:50 MCV 90.4 fl (80-96) 07/05/17 05:50 MCH 29.9 pg (25.7-33.7) 07/05/17 05:50 MCHC 33.1 g/dl (32.0-35.9) 07/05/17 05:50 RDW 15.2 % (11.9-15.9) 07/05/17 05:50 Plt Count 270 K/MM3 (134-434) 07/05/17 05:50 MPV 9.2 fl (7.5-11.1) 07/05/17 05:50 Sodium 140 mmol/L (136-145) 07/05/17 05:50 Potassium 4.1 mmol/L (3.5-5.1) 07/05/17 05:50 Chloride 104 mmol/L (98-107) 07/05/17 05:50 Carbon Dioxide 28 mmol/L (21-32) 07/05/17 05:50 Anion Gap 8 (8-16) 07/05/17 05:50 BUN 8 mg/dL (7-18) 07/05/17 05:50 Creatinine 1.1 mg/dL (0.7-1.3) 07/05/17 05:50 Creat Clearance w eGFR > 60 (>60) 07/05/17 05:50 Random Glucose 92 mg/dL (74-106) 07/05/17 05:50 Calcium 9.3 mg/dL (8.5-10.1) 07/05/17 05:50 Total Bilirubin 0.2 mg/dL (0.2-1.0) D 07/05/17 05:50 AST 26 U/L (15-37) 07/05/17 05:50 ALT 40 U/L (12-78) 07/05/17 05:50 Alkaline Phosphatase 73 U/L (45-117) 07/05/17 05:50 Total Protein 7.7 g/dl (6.4-8.2) 07/05/17 05:50 Albumin 4.3 g/dl (3.4-5.0) 07/05/17 05:50 Urine Color Straw 07/04/17 17:23 Urine Appearance Clear 07/04/17 17:23 Urine pH 6.0 (5.0-8.0) 07/04/17 17:23 Ur Specific [place] 1.006 (1.001-1.035) 07/04/17 17:23 Urine Protein Negative (NEGATIVE) 07/04/17 17:23 Urine Glucose (UA) Negative (NEGATIVE) 07/04/17 17:23 Urine Ketones Negative (NEGATIVE) 07/04/17 17:23 Urine Blood Negative (NEGATIVE) 07/04/17 17:23 Urine Nitrite Negative (NEGATIVE) 07/04/17 17:23 Urine Bilirubin Negative (<2.0 mg/dL) 07/04/17 17:23 Urine Urobilinogen Negative mg/dL (0.2-1.0) 07/04/17 17:23 Ur Leukocyte Esterase Negative (NEGATIVE) 07/04/17 17:23 RPR Titer Nonreactive (NONREACTIVE) 07/05/17 05:50 HIV 1&2 Antibody Screen Negative 07/04/17 06:00 HIV P24 Antigen Negative 07/04/17 06:00 Labs noted Assessment: 07/06/17 12:52 Withdrawal sx Plan: Continue detox
[2017-07-06] MEDS: diazePAM 5 MG TABLET PO PRN (15:40)
[2017-07-06] MEDS: THIAMINE HCL 100 MG TABLET (FP) PO SCH (22:09)
[2017-07-06] MEDS: MELATONIN 5 MG TABLETS PO PRN (22:09)
[2017-07-06] MEDS: QUEtiapine FUMARATE 100 MG TABLET (FP) PO SCH (22:09)
[2017-07-07] MEDS: diazePAM 5 MG TABLET PO PRN ×3 (05:43→14:23)
[2017-07-07] MEDS ORDERED: METHADONE HCL 5 MG TABLET (FOR DETOX USE ONLY) PO ONE (10:00)
[2017-07-07] MEDS: cloNIDine HCL 0.1 MG TABLET PO SCH ×2 (10:11→22:08)
[2017-07-07] MEDS: PRENATAL VITAMINS W/ FOLIC ACID TABLET (FP) PO SCH (10:11)
[2017-07-07] MEDS: HYDROCHLOROTHIAZIDE 25 MG TABLET (FP) PO SCH (10:11)
--- NOTE | 2017-07-07 12:40 | PN ---
BHS Progress Note (SOAP) Subjective: sweat joint ache sleepless tremor restlessness gi distress irritable Objective: 07/07/17 12:39 Vital Signs Temperature 97.7 F 07/07/17 10:00 Pulse Rate 66 07/07/17 10:00 Respiratory Rate 18 07/07/17 10:00 Blood Pressure 136/87 07/07/17 10:00 O2 Sat by Pulse Oximetry (%) Laboratory Last Values WBC 9.6 K/mm3 (4.0-10.0) 07/05/17 05:50 RBC 4.00 M/mm3 (4.00-5.60) 07/05/17 05:50 Hgb 12.0 GM/dL (11.7-16.9) 07/05/17 05:50 Hct 36.2 % (35.4-49) 07/05/17 05:50 MCV 90.4 fl (80-96) 07/05/17 05:50 MCH 29.9 pg (25.7-33.7) 07/05/17 05:50 MCHC 33.1 g/dl (32.0-35.9) 07/05/17 05:50 RDW 15.2 % (11.9-15.9) 07/05/17 05:50 Plt Count 270 K/MM3 (134-434) 07/05/17 05:50 MPV 9.2 fl (7.5-11.1) 07/05/17 05:50 Sodium 140 mmol/L (136-145) 07/05/17 05:50 Potassium 4.1 mmol/L (3.5-5.1) 07/05/17 05:50 Chloride 104 mmol/L (98-107) 07/05/17 05:50 Carbon Dioxide 28 mmol/L (21-32) 07/05/17 05:50 Anion Gap 8 (8-16) 07/05/17 05:50 BUN 8 mg/dL (7-18) 07/05/17 05:50 Creatinine 1.1 mg/dL (0.7-1.3) 07/05/17 05:50 Creat Clearance w eGFR > 60 (>60) 07/05/17 05:50 Random Glucose 92 mg/dL (74-106) 07/05/17 05:50 Calcium 9.3 mg/dL (8.5-10.1) 07/05/17 05:50 Total Bilirubin 0.2 mg/dL (0.2-1.0) D 07/05/17 05:50 AST 26 U/L (15-37) 07/05/17 05:50 ALT 40 U/L (12-78) 07/05/17 05:50 Alkaline Phosphatase 73 U/L (45-117) 07/05/17 05:50 Total Protein 7.7 g/dl (6.4-8.2) 07/05/17 05:50 Albumin 4.3 g/dl (3.4-5.0) 07/05/17 05:50 Urine Color Straw 07/04/17 17:23 Urine Appearance Clear 07/04/17 17:23 Urine pH 6.0 (5.0-8.0) 07/04/17 17:23 Ur Specific [place] 1.006 (1.001-1.035) 07/04/17 17:23 Urine Protein Negative (NEGATIVE) 07/04/17 17:23 Urine Glucose (UA) Negative (NEGATIVE) 07/04/17 17:23 Urine Ketones Negative (NEGATIVE) 07/04/17 17:23 Urine Blood Negative (NEGATIVE) 07/04/17 17:23 Urine Nitrite Negative (NEGATIVE) 07/04/17 17:23 Urine Bilirubin Negative (<2.0 mg/dL) 07/04/17 17:23 Urine Urobilinogen Negative mg/dL (0.2-1.0) 07/04/17 17:23 Ur Leukocyte Esterase Negative (NEGATIVE) 07/04/17 17:23 RPR Titer Nonreactive (NONREACTIVE) 07/05/17 05:50 HIV 1&2 Antibody Screen Negative 07/04/17 06:00 HIV P24 Antigen Negative 07/04/17 06:00 lab noted Assessment: 07/07/17 12:39 withdrawal sx Plan: continue detox
[2017-07-07] MEDS: QUEtiapine FUMARATE 100 MG TABLET (FP) PO SCH (22:07)
[2017-07-07] MEDS: THIAMINE HCL 100 MG TABLET (FP) PO SCH (22:07)
[2017-07-07] MEDS: MELATONIN 5 MG TABLETS PO PRN (22:08)
[2017-07-08] MEDS: hydrOXYzine PAMOATE 50 MG CAPSULE (FP) PO PRN ×2 (06:23→22:22)
[2017-07-08] MEDS ORDERED: METHADONE HCL 10 MG TABLET (FOR DETOX USE ONLY) PO ONE (10:00)
[2017-07-08] MEDS: PRENATAL VITAMINS W/ FOLIC ACID TABLET (FP) PO SCH (10:08)
[2017-07-08] MEDS: cloNIDine HCL 0.1 MG TABLET PO SCH ×2 (10:08→22:22)
[2017-07-08] MEDS: HYDROCHLOROTHIAZIDE 25 MG TABLET (FP) PO SCH (10:08)
[2017-07-08] MEDS: CYCLOBENZAPRINE HCL 10 MG TABLET (FP) PO PRN ×2 (10:08→22:23)
--- NOTE | 2017-07-08 11:00 | PN ---
BHS Progress Note (SOAP) Subjective: feeling better no tremor less sweat social with peers in day room Objective: 07/08/17 10:59 Vital Signs Temperature 97.2 F L 07/08/17 10:05 Pulse Rate 72 07/08/17 10:05 Respiratory Rate 20 07/08/17 10:05 Blood Pressure 145/92 07/08/17 10:05 O2 Sat by Pulse Oximetry (%) Laboratory Last Values WBC 9.6 K/mm3 (4.0-10.0) 07/05/17 05:50 RBC 4.00 M/mm3 (4.00-5.60) 07/05/17 05:50 Hgb 12.0 GM/dL (11.7-16.9) 07/05/17 05:50 Hct 36.2 % (35.4-49) 07/05/17 05:50 MCV 90.4 fl (80-96) 07/05/17 05:50 MCH 29.9 pg (25.7-33.7) 07/05/17 05:50 MCHC 33.1 g/dl (32.0-35.9) 07/05/17 05:50 RDW 15.2 % (11.9-15.9) 07/05/17 05:50 Plt Count 270 K/MM3 (134-434) 07/05/17 05:50 MPV 9.2 fl (7.5-11.1) 07/05/17 05:50 Sodium 140 mmol/L (136-145) 07/05/17 05:50 Potassium 4.1 mmol/L (3.5-5.1) 07/05/17 05:50 Chloride 104 mmol/L (98-107) 07/05/17 05:50 Carbon Dioxide 28 mmol/L (21-32) 07/05/17 05:50 Anion Gap 8 (8-16) 07/05/17 05:50 BUN 8 mg/dL (7-18) 07/05/17 05:50 Creatinine 1.1 mg/dL (0.7-1.3) 07/05/17 05:50 Creat Clearance w eGFR > 60 (>60) 07/05/17 05:50 Random Glucose 92 mg/dL (74-106) 07/05/17 05:50 Calcium 9.3 mg/dL (8.5-10.1) 07/05/17 05:50 Total Bilirubin 0.2 mg/dL (0.2-1.0) D 07/05/17 05:50 AST 26 U/L (15-37) 07/05/17 05:50 ALT 40 U/L (12-78) 07/05/17 05:50 Alkaline Phosphatase 73 U/L (45-117) 07/05/17 05:50 Total Protein 7.7 g/dl (6.4-8.2) 07/05/17 05:50 Albumin 4.3 g/dl (3.4-5.0) 07/05/17 05:50 Urine Color Straw 07/04/17 17:23 Urine Appearance Clear 07/04/17 17:23 Urine pH 6.0 (5.0-8.0) 07/04/17 17:23 Ur Specific [place] 1.006 (1.001-1.035) 07/04/17 17:23 Urine Protein Negative (NEGATIVE) 07/04/17 17:23 Urine Glucose (UA) Negative (NEGATIVE) 07/04/17 17:23 Urine Ketones Negative (NEGATIVE) 07/04/17 17:23 Urine Blood Negative (NEGATIVE) 07/04/17 17:23 Urine Nitrite Negative (NEGATIVE) 07/04/17 17:23 Urine Bilirubin Negative (<2.0 mg/dL) 07/04/17 17:23 Urine Urobilinogen Negative mg/dL (0.2-1.0) 07/04/17 17:23 Ur Leukocyte Esterase Negative (NEGATIVE) 07/04/17 17:23 RPR Titer Nonreactive (NONREACTIVE) 07/05/17 05:50 HIV 1&2 Antibody Screen Negative 07/04/17 06:00 HIV P24 Antigen Negative 07/04/17 06:00 lab noted Assessment: 07/08/17 10:59 mild withdrawal sx Plan: medically supervised detox
[2017-07-08] MEDS: THIAMINE HCL 100 MG TABLET (FP) PO SCH (22:22)
[2017-07-08] MEDS: QUEtiapine FUMARATE 100 MG TABLET (FP) PO SCH (22:22)
[2017-07-09] MEDS ORDERED: METHADONE HCL 5 MG TABLET (FOR DETOX USE ONLY) PO ONE (06:00)
[2017-07-09 06:23] VITALS: BP 139/89; PULSE 66; TEMP 97.7
--- NOTE | 2017-07-09 08:52 | DS ---
[facility] Detox Discharge Summary Admission Date: 07/04/17 Discharge Date: 07/09/17 - History Present History: Opioid Dependence, Sedative Dependence Additional Comments: 51 years old male admitted for benzo and opiate withdrawal sx completed detox regiment tolerate well patient is alert oriented x 3 no acute distress agrees [facility] for aftercare patient acknowledged hypertension dietary and complications of uncontrolled bp - Physical Exam Results Vital Signs: Vital Signs Temperature 97.7 F 07/09/17 06:22 Pulse Rate 66 07/09/17 06:22 Respiratory Rate 18 07/09/17 06:22 Blood Pressure 139/89 07/09/17 06:22 O2 Sat by Pulse Oximetry (%) Pertinent Admission Physical Exam Findings: withdrawal sx Vital Signs Temperature 97.7 F 07/09/17 06:22 Pulse Rate 66 07/09/17 06:22 Respiratory Rate 18 07/09/17 06:22 Blood Pressure 139/89 07/09/17 06:22 O2 Sat by Pulse Oximetry (%) Laboratory Last Values WBC 9.6 K/mm3 (4.0-10.0) 07/05/17 05:50 RBC 4.00 M/mm3 (4.00-5.60) 07/05/17 05:50 Hgb 12.0 GM/dL (11.7-16.9) 07/05/17 05:50 Hct 36.2 % (35.4-49) 07/05/17 05:50 MCV 90.4 fl (80-96) 07/05/17 05:50 MCH 29.9 pg (25.7-33.7) 07/05/17 05:50 MCHC 33.1 g/dl (32.0-35.9) 07/05/17 05:50 RDW 15.2 % (11.9-15.9) 07/05/17 05:50 Plt Count 270 K/MM3 (134-434) 07/05/17 05:50 MPV 9.2 fl (7.5-11.1) 07/05/17 05:50 Sodium 140 mmol/L (136-145) 07/05/17 05:50 Potassium 4.1 mmol/L (3.5-5.1) 07/05/17 05:50 Chloride 104 mmol/L (98-107) 07/05/17 05:50 Carbon Dioxide 28 mmol/L (21-32) 07/05/17 05:50 Anion Gap 8 (8-16) 07/05/17 05:50 BUN 8 mg/dL (7-18) 07/05/17 05:50 Creatinine 1.1 mg/dL (0.7-1.3) 07/05/17 05:50 Creat Clearance w eGFR > 60 (>60) 07/05/17 05:50 Random Glucose 92 mg/dL (74-106) 07/05/17 05:50 Calcium 9.3 mg/dL (8.5-10.1) 07/05/17 05:50 Total Bilirubin 0.2 mg/dL (0.2-1.0) D 07/05/17 05:50 AST 26 U/L (15-37) 07/05/17 05:50 ALT 40 U/L (12-78) 07/05/17 05:50 Alkaline Phosphatase 73 U/L (45-117) 07/05/17 05:50 Total Protein 7.7 g/dl (6.4-8.2) 07/05/17 05:50 Albumin 4.3 g/dl (3.4-5.0) 07/05/17 05:50 Urine Color Straw 07/04/17 17:23 Urine Appearance Clear 07/04/17 17:23 Urine pH 6.0 (5.0-8.0) 07/04/17 17:23 Ur Specific [place] 1.006 (1.001-1.035) 07/04/17 17:23 Urine Protein Negative (NEGATIVE) 07/04/17 17:23 Urine Glucose (UA) Negative (NEGATIVE) 07/04/17 17:23 Urine Ketones Negative (NEGATIVE) 07/04/17 17:23 Urine Blood Negative (NEGATIVE) 07/04/17 17:23 Urine Nitrite Negative (NEGATIVE) 07/04/17 17:23 Urine Bilirubin Negative (<2.0 mg/dL) 07/04/17 17:23 Urine Urobilinogen Negative mg/dL (0.2-1.0) 07/04/17 17:23 Ur Leukocyte Esterase Negative (NEGATIVE) 07/04/17 17:23 RPR Titer Nonreactive (NONREACTIVE) 07/05/17 05:50 HIV 1&2 Antibody Screen Negative 07/04/17 06:00 HIV P24 Antigen Negative 07/04/17 06:00 lab noted - Treatment Hospital Course: Detox Protocol Followed, Detoxed Safely, Responded well, Discharged Condition Good, Rehab Referral Accepted Patient has Accepted a Rehab Referral to: [facility] - Medication Discharge Medications: Ambulatory Orders Clonazepam [Klonopin] 1 mg PO HS 07/04/17 Quetiapine Fumarate [Seroquel] 100 mg PO HS #30 tablet 07/04/17 Hydrochlorothiazide [Hctz -] 25 mg PO DAILY #30 tablet 07/08/17 - Diagnosis (1) Nicotine dependence Current Visit: Yes Status: Acute Qualifiers: Nicotine product type: cigarettes Substance use status: in withdrawal Qualified Code(s): F17.213 - Nicotine dependence, cigarettes, with withdrawal (2) Sedative hypnotic or anxiolytic dependence Current Visit: Yes Status: Acute (3) Opioid dependence with withdrawal Current Visit: Yes Status: Acute (4) Hypertension Current Visit: Yes Status: Chronic Qualifiers: Hypertension type: essential hypertension Qualified Code(s): I10 - Essential (primary) hypertension - AMA Did Patient Leave Against Medical Advice: No
[2017-07-09] MEDS: HYDROCHLOROTHIAZIDE 25 MG TABLET (FP) PO SCH (09:52)
[2017-07-09] MEDS: PRENATAL VITAMINS W/ FOLIC ACID TABLET (FP) PO SCH (09:52)
[2017-07-09] MEDS: cloNIDine HCL 0.1 MG TABLET PO SCH (09:53)
== END 2017-07-09 09:55 | disposition home or self-care (01) | DRG 773 ==
LOC: YASAS 12:08 → Y6N 15:55
PROVIDERS: ADMIT Internal Medicine; ATTEND Internal Medicine
PROC: HZ2ZZZZ Detoxification Services for Substance Abuse Treatment (ICD-10-PCS; principal; 2017-07-04)
DX: F11.23 Opioid dependence with withdrawal (principal); F13.230 Sedative, hypnotic or anxiolytic dependence with withdrawal, uncomplicated; F12.20 Cannabis dependence, uncomplicated; F17.210 Nicotine dependence, cigarettes, uncomplicated; F51.05 Insomnia due to other mental disorder; F19.24 Other psychoactive substance dependence with psychoactive substance-induced mood disorder; F39 Unspecified mood [affective] disorder; F60.2 Antisocial personality disorder; B35.3 Tinea pedis; R63.4 Abnormal weight loss; Z68.22 Body mass index [BMI] 22.0-22.9, adult; Z87.828 Personal history of other (healed) physical injury and trauma
CPT/HCPCS: 36415; 80053; 81003; 85027; 86593; 87389; 93005; 93010; J0735

== ENCOUNTER 2017-10-29 12:37 | Inpatient (IN) | payer OTHER ==
[2017-10-29 13:50] VITALS: BMI 22.6
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
[2017-10-29] MEDS ORDERED: MAGNESIUM HYDROX 2400MG/30ML ORAL SUSPENSION 30 ML CUP PO PRN (16:43)
[2017-10-29] MEDS ORDERED: MAGNESIUM CITRATE 300 ML BOTTLE PO PRN (16:43)
[2017-10-29] MEDS ORDERED: P-EPHED 60MG/TRIPROLIDI 2.5MG TABLET PO PRN (16:43)
[2017-10-29] MEDS ORDERED: IBUPROFEN 400 MG TABLET (FP) PO PRN (16:43)
[2017-10-29] MEDS ORDERED: MAG HYDROX/AL HYDROX/SIMETH 30 ML UNIT-DOSE CUP PO PRN (16:43)
[2017-10-29] MEDS ORDERED: guaiFENesin/D-METHORPHAN HB 10 ML UNIT-DOSE CUPS PO PRN (16:43)
[2017-10-29] MEDS ORDERED: LOPERAMIDE HCL 2 MG CAPSULE PO PRN (16:43)
[2017-10-29] MEDS ORDERED: ACETAMINOPHEN 325 MG TABLET (FP) PO PRN (16:43)
[2017-10-29] MEDS ORDERED: MENTHOL/PHENOL 1 EACH UD MM PRN (16:43)
[2017-10-29] MEDS ORDERED: METHADONE HCL 10 MG TABLET (FOR DETOX USE ONLY) PO ONE ×2 (18:00→23:00)
[2017-10-29] MEDS: HYDROCHLOROTHIAZIDE 25 MG TABLET (FP) PO SCH (18:24)
[2017-10-29] MEDS ORDERED: MELATONIN 5 MG TABLETS PO PRN (22:00)
[2017-10-29] MEDS: THIAMINE HCL 100 MG TABLET (FP) PO SCH (22:42)
[2017-10-29] MEDS: diazePAM 5 MG TABLET PO PRN (22:43)
[2017-10-30] MEDS ORDERED: METHADONE HCL 10 MG TABLET (FOR DETOX USE ONLY) PO ONE (10:00)
[2017-10-30 10:10] LABS: CHLORIDE 104 mmol/L (98-107); POTASSIUM 4.5 mmol/L (3.5-5.1); SODIUM 141 mmol/L (136-145)
[2017-10-30 10:12] LABS: HEMATOCRIT 39.2 % (35.4-49); HEMOGLOBIN 13.1 GM/dL (11.7-16.9); MCHC 33.5 g/dl (32.0-35.9); MEAN CELL VOLUME 89.5 fl (80-96); MEAN PLT VOLUME 9.2 fl (7.5-11.1); PLATELET COUNT 271 K/MM3 (134-434); RBC 4.38 M/mm3 (4.00-5.60); WHITE BLOOD COUNT 10.2 K/mm3 (4.0-10.0)
[2017-10-30 10:24] LABS: ALBUMIN 4.2 g/dl (3.4-5.0); ALK PHOS 82 U/L (45-117); ANION GAP 7 (8-16); BILIRUBIN,TOTAL 0.3 mg/dL (0.2-1.0); BLOOD UREA NITROGEN 10 mg/dL (7-18); CALCIUM 9.5 mg/dL (8.5-10.1); CO2 30 mmol/L (21-32); CREATININE 1.2 mg/dL (0.7-1.3); GLUCOSE,RANDOM 73 mg/dL (74-106); SGOT/AST 42 U/L (15-37); SGPT/ALT 47 U/L (12-78); TOT PROT 7.8 g/dl (6.4-8.2)
[2017-10-30] MEDS: PRENATAL VITAMINS W/ FOLIC ACID TABLET (FP) PO SCH (10:31)
[2017-10-30] MEDS: HYDROCHLOROTHIAZIDE 25 MG TABLET (FP) PO SCH (10:31)
[2017-10-30] MEDS: diazePAM 5 MG TABLET PO PRN ×3 (10:31→22:18)
--- NOTE | 2017-10-30 10:47 | EKG ---
Test Reason : Blood Pressure : / mmHG Vent. Rate : 041 BPM Atrial Rate : 041 BPM P-R Int : 160 ms QRS Dur : 094 ms QT Int : 458 ms P-R-T Axes : 029 067 063 degrees QTc Int : 377 ms MARKED SINUS BRADYCARDIA MODERATE VOLTAGE CRITERIA FOR LVH, MAY BE NORMAL VARIANT ABNORMAL ECG WHEN COMPARED WITH ECG OF 04-JUL-2017 17:23, NO SIGNIFICANT CHANGE WAS FOUND Confirmed by DHARMESH RAMOS, LELIA ([id number]) on 10/30/2017 10:46:42 AM Referred By: Confirmed By:LELIA BARROSO MD
--- NOTE | 2017-10-30 13:14 | PN ---
[facility]HS COWS - Scale Resting Pulse: 0= [place] 80 or Below Sweatin= Chills/Flushing Restless Observation: 3= Extraneous Movement Pupil Size: 2= Moderately Dilated Bone or Joint Aches: 1= Mild Discomfort Runny Nose/ Eye Tearin= None GI Upset > 30mins: 0= None Tremor Observation of Outstretched Hands: 1= Tremor [place], Not Seen Yawning Observation: 1= 1-2x During Session Anxiety or Irritability: 2=Irritable/Anxious Goose Flesh Skin: 0=Smooth Skin COWS Score: 11 S Progress Note (SOAP) Subjective: ANXIETY,SWEATS,IRRITABILITY, DEPRESSED MOOD-DENIES S/I, INTERMITTENT SLEEP. Objective: 10/30/17 13:13 Vital Signs 10/30/17 10/30/17 10/30/17 06:27 09:08 13:11 Temperature 97.9 F 95.9 F L 97 F L Pulse Rate 50 L 64 58 L Respiratory 18 18 20 Rate Blood Pressure 153/106 157/92 132/91 Laboratory Tests 10/30/17 10/30/17 07:30 07:30 WBC 10.2 H RBC 4.38 Hgb 13.1 Hct 39.2 MCV 89.5 MCH 30.0 MCHC 33.5 RDW 14.0 Plt Count 271 MPV 9.2 Sodium 141 Potassium 4.5 Chloride 104 Carbon Dioxide 30 Anion Gap 7 L BUN 10 Creatinine 1.2 Creat Clearance w eGFR > 60 Random Glucose 73 L D Calcium 9.5 Total Bilirubin 0.3 AST 42 H D ALT 47 Alkaline Phosphatase 82 Total Protein 7.8 Albumin 4.2 OTHER LABS PENDING Assessment: 10/30/17 13:13 WITHDRAWAL SX Plan: CONTINUE DETOX F/U WITH PSYCH CONSULT TODAY.
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
[2017-10-30] MEDS: hydrOXYzine PAMOATE 25 MG CAPSULE (FP) PO PRN (17:11)
[2017-10-30 18:19] LABS: URINE APPEARANCE CLEAR; URINE BILIRUBIN NEGATIVE (<2.0 mg/dL); URINE COLOR LTYELLOW; URINE GLUCOSE (UA) NEGATIVE (NEGATIVE); URINE KETONE NEGATIVE (NEGATIVE); URINE LEUK ESTERASE NEGATIVE (NEGATIVE); URINE NITRITE NEGATIVE (NEGATIVE); URINE PROTEIN NEGATIVE (NEGATIVE); URINE UROBILINOGEN NEGATIVE mg/dL (0.2-1.0)
[2017-10-30] MEDS: THIAMINE HCL 100 MG TABLET (FP) PO SCH (22:17)
[2017-10-30] MEDS: GABAPENTIN 300 MG CAPSULE (FP) PO SCH (22:18)
[2017-10-31] MEDS ORDERED: METHADONE HCL 5 MG TABLET (FOR DETOX USE ONLY) PO ONE (10:00)
[2017-10-31] MEDS: PRENATAL VITAMINS W/ FOLIC ACID TABLET (FP) PO SCH (10:32)
[2017-10-31] MEDS: diazePAM 5 MG TABLET PO PRN ×3 (10:32→22:34)
[2017-10-31] MEDS: GABAPENTIN 300 MG CAPSULE (FP) PO SCH ×2 (10:32→22:31)
[2017-10-31] MEDS: HYDROCHLOROTHIAZIDE 25 MG TABLET (FP) PO SCH (10:32)
--- NOTE | 2017-10-31 16:55 | PN ---
BHS COWS - Scale Resting Pulse: 0= [place] 80 or Below Sweatin= Chills/Flushing Restless Observation: 1= Difficult to Sit Still Pupil Size: 1= Pupils >than Normal Bone or Joint Aches: 1= Mild Discomfort Runny Nose/ Eye Tearin= Runny Nose/Eyes GI Upset > 30mins: 2= Nausea/Diarrhea Tremor Observation of Outstretched Hands: 1= Tremor [place], Not Seen Yawning Observation: 2= >3x During Session Anxiety or Irritability: 2=Irritable/Anxious Goose Flesh Skin: 0=Smooth Skin COWS Score: 13 BHS Progress Note (SOAP) Subjective: tire, interrupted sleep, stomach cramps, diarrhea, chills sweat Objective: 10/31/17 16:54 Vital Signs Temperature 98.9 F 10/31/17 13:37 Pulse Rate 72 10/31/17 13:37 Respiratory Rate 18 10/31/17 13:37 Blood Pressure 124/80 10/31/17 13:37 O2 Sat by Pulse Oximetry (%) Laboratory Last Values WBC 10.2 K/mm3 (4.0-10.0) H 10/30/17 07:30 RBC 4.38 M/mm3 (4.00-5.60) 10/30/17 07:30 Hgb 13.1 GM/dL (11.7-16.9) 10/30/17 07:30 Hct 39.2 % (35.4-49) 10/30/17 07:30 MCV 89.5 fl (80-96) 10/30/17 07:30 MCH 30.0 pg (25.7-33.7) 10/30/17 07:30 MCHC 33.5 g/dl (32.0-35.9) 10/30/17 07:30 RDW 14.0 % (11.9-15.9) 10/30/17 07:30 Plt Count 271 K/MM3 (134-434) 10/30/17 07:30 MPV 9.2 fl (7.5-11.1) 10/30/17 07:30 Sodium 141 mmol/L (136-145) 10/30/17 07:30 Potassium 4.5 mmol/L (3.5-5.1) 10/30/17 07:30 Chloride 104 mmol/L (98-107) 10/30/17 07:30 Carbon Dioxide 30 mmol/L (21-32) 10/30/17 07:30 Anion Gap 7 (8-16) L 10/30/17 07:30 BUN 10 mg/dL (7-18) 10/30/17 07:30 Creatinine 1.2 mg/dL (0.7-1.3) 10/30/17 07:30 Creat Clearance w eGFR > 60 (>60) 10/30/17 07:30 Random Glucose 73 mg/dL (74-106) L D 10/30/17 07:30 Calcium 9.5 mg/dL (8.5-10.1) 10/30/17 07:30 Total Bilirubin 0.3 mg/dL (0.2-1.0) 10/30/17 07:30 AST 42 U/L (15-37) H D 10/30/17 07:30 ALT 47 U/L (12-78) 10/30/17 07:30 Alkaline Phosphatase 82 U/L (45-117) 10/30/17 07:30 Total Protein 7.8 g/dl (6.4-8.2) 10/30/17 07:30 Albumin 4.2 g/dl (3.4-5.0) 10/30/17 07:30 Urine Color Ltyellow 10/30/17 17:00 Urine Appearance Clear 10/30/17 17:00 Urine pH 6.0 (5.0-8.0) 10/30/17 17:00 Ur Specific [place] 1.009 (1.001-1.035) 10/30/17 17:00 Urine Protein Negative (NEGATIVE) 10/30/17 17:00 Urine Glucose (UA) Negative (NEGATIVE) 10/30/17 17:00 Urine Ketones Negative (NEGATIVE) 10/30/17 17:00 Urine Blood Negative (NEGATIVE) 10/30/17 17:00 Urine Nitrite Negative (NEGATIVE) 10/30/17 17:00 Urine Bilirubin Negative (<2.0 mg/dL) 10/30/17 17:00 Urine Urobilinogen Negative mg/dL (0.2-1.0) 10/30/17 17:00 Ur Leukocyte Esterase Negative (NEGATIVE) 10/30/17 17:00 RPR Titer Nonreactive (NONREACTIVE) 10/30/17 07:30 Assessment: 10/31/17 16:55 withdrawal sx Plan: increase PO fluids immodium PRN for diarrhea continue to monitor
[2017-10-31] MEDS: THIAMINE HCL 100 MG TABLET (FP) PO SCH (22:31)
[2017-10-31] MEDS: hydrOXYzine PAMOATE 25 MG CAPSULE (FP) PO PRN (22:31)
[2017-11-01] MEDS: diazePAM 5 MG TABLET PO PRN ×2 (05:59→10:39)
[2017-11-01] MEDS ORDERED: METHADONE HCL 5 MG TABLET (FOR DETOX USE ONLY) PO ONE (10:00)
[2017-11-01] MEDS: PRENATAL VITAMINS W/ FOLIC ACID TABLET (FP) PO SCH (10:38)
[2017-11-01] MEDS: HYDROCHLOROTHIAZIDE 25 MG TABLET (FP) PO SCH (10:39)
[2017-11-01] MEDS: GABAPENTIN 300 MG CAPSULE (FP) PO SCH ×2 (10:39→22:29)
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
--- NOTE | 2017-11-01 14:35 | PN ---
[facility] Progress Note (SOAP) Subjective: says doing well, ready to go home, says he may restart suboxone once he clairifies his inusrance status Objective: 11/01/17 14:32 Vital Signs - 24 hr 10/31/17 10/31/17 11/01/17 18:44 22:06 00:30 Temperature 99.4 F 98.0 F Pulse Rate 63 56 L Respiratory 16 18 18 Rate Blood Pressure 117/76 148/96 11/01/17 11/01/17 11/01/17 03:30 06:50 09:44 Temperature 97.6 F 98.2 F Pulse Rate 46 L 73 Respiratory 18 18 16 Rate Blood Pressure 141/98 131/82 11/01/17 14:22 Temperature 96.4 F L Pulse Rate 68 Respiratory 18 Rate Blood Pressure 164/110 Laboratory Tests 10/30/17 10/30/17 10/30/17 07:30 07:30 07:30 WBC 10.2 H RBC 4.38 Hgb 13.1 Hct 39.2 MCV 89.5 MCH 30.0 MCHC 33.5 RDW 14.0 Plt Count 271 MPV 9.2 Sodium 141 Potassium 4.5 Chloride 104 Carbon Dioxide 30 Anion Gap 7 L BUN 10 Creatinine 1.2 Creat Clearance w eGFR > 60 Random Glucose 73 L D Calcium 9.5 Total Bilirubin 0.3 AST 42 H D ALT 47 Alkaline Phosphatase 82 Total Protein 7.8 Albumin 4.2 Urine Color Urine Appearance Urine pH Ur Specific [place] Urine Protein Urine Glucose (UA) Urine Ketones Urine Blood Urine Nitrite Urine Bilirubin Urine Urobilinogen Ur Leukocyte Esterase RPR Titer Nonreactive 10/30/17 17:00 WBC RBC Hgb Hct MCV MCH MCHC RDW Plt Count MPV Sodium Potassium Chloride Carbon Dioxide Anion Gap BUN Creatinine Creat Clearance w eGFR Random Glucose Calcium Total Bilirubin AST ALT Alkaline Phosphatase Total Protein Albumin Urine Color Ltyellow Urine Appearance Clear Urine pH 6.0 Ur Specific [place] 1.009 Urine Protein Negative Urine Glucose (UA) Negative Urine Ketones Negative Urine Blood Negative Urine Nitrite Negative Urine Bilirubin Negative Urine Urobilinogen Negative Ur Leukocyte Esterase Negative RPR Titer noted to have high BP today, was normal previous days- will follow and if presistently high-need f/u with PCP 11/01/17 14:35 Assessment: 11/01/17 14:34 completing heroin detox protocol- f/u with PCP and for suboxone as outpt
[2017-11-01] MEDS: buPROPion HCL 75 MG TABLET PO SCH (15:23)
[2017-11-01] MEDS: hydrOXYzine PAMOATE 25 MG CAPSULE (FP) PO PRN ×2 (17:38→22:30)
[2017-11-01] MEDS: THIAMINE HCL 100 MG TABLET (FP) PO SCH (22:28)
[2017-11-01] MEDS: OLANZapine 5 MG TABLET PO SCH (22:29)
[2017-11-02] MEDS ORDERED: METHADONE HCL 10 MG TABLET (FOR DETOX USE ONLY) PO ONE (10:00)
[2017-11-02] MEDS: HYDROCHLOROTHIAZIDE 25 MG TABLET (FP) PO SCH (10:32)
[2017-11-02] MEDS: PRENATAL VITAMINS W/ FOLIC ACID TABLET (FP) PO SCH (10:32)
[2017-11-02] MEDS: GABAPENTIN 300 MG CAPSULE (FP) PO SCH ×2 (10:33→22:35)
[2017-11-02] MEDS: buPROPion HCL 75 MG TABLET PO SCH (10:33)
[2017-11-02] MEDS: hydrOXYzine PAMOATE 25 MG CAPSULE (FP) PO PRN ×3 (13:00→22:38)
--- NOTE | 2017-11-02 19:04 | PN ---
BHS Progress Note (SOAP) Subjective: Body Aches, Anxious. Objective: PATIENT A & O X 2 (UNCERTAIN ABOUT CURRENT DAY / DATE). PATIENT OBSERVED AMBULATING ON UNIT. NO ACUTE DISTRESS. 11/02/17 19:02 Vital Signs Temperature 98.6 F 11/02/17 09:59 Pulse Rate 66 11/02/17 09:59 Respiratory Rate 19 11/02/17 09:59 Blood Pressure 127/80 11/02/17 09:59 O2 Sat by Pulse Oximetry (%) Laboratory Tests 10/30/17 10/30/17 10/30/17 07:30 07:30 07:30 WBC 10.2 H RBC 4.38 Hgb 13.1 Hct 39.2 MCV 89.5 MCH 30.0 MCHC 33.5 RDW 14.0 Plt Count 271 MPV 9.2 Sodium 141 Potassium 4.5 Chloride 104 Carbon Dioxide 30 Anion Gap 7 L BUN 10 Creatinine 1.2 Creat Clearance w eGFR > 60 Random Glucose 73 L D Calcium 9.5 Total Bilirubin 0.3 AST 42 H D ALT 47 Alkaline Phosphatase 82 Total Protein 7.8 Albumin 4.2 Urine Color Urine Appearance Urine pH Ur Specific [place] Urine Protein Urine Glucose (UA) Urine Ketones Urine Blood Urine Nitrite Urine Bilirubin Urine Urobilinogen Ur Leukocyte Esterase RPR Titer Nonreactive 10/30/17 17:00 WBC RBC Hgb Hct MCV MCH MCHC RDW Plt Count MPV Sodium Potassium Chloride Carbon Dioxide Anion Gap BUN Creatinine Creat Clearance w eGFR Random Glucose Calcium Total Bilirubin AST ALT Alkaline Phosphatase Total Protein Albumin Urine Color Ltyellow Urine Appearance Clear Urine pH 6.0 Ur Specific [place] 1.009 Urine Protein Negative Urine Glucose (UA) Negative Urine Ketones Negative Urine Blood Negative Urine Nitrite Negative Urine Bilirubin Negative Urine Urobilinogen Negative Ur Leukocyte Esterase Negative RPR Titer LABS NOTED. Assessment: 11/02/17 19:03 WITHDRAWAL SYMPTOMS. Plan: CONTINUE DETOX. PATIENT SCHEDULED FOR D/C TOMORROW.
[2017-11-02] MEDS: THIAMINE HCL 100 MG TABLET (FP) PO SCH (22:35)
[2017-11-02] MEDS: OLANZapine 5 MG TABLET PO SCH (22:35)
[2017-11-03] MEDS ORDERED: METHADONE HCL 5 MG TABLET (FOR DETOX USE ONLY) PO ONE (06:00)
[2017-11-03 06:24] VITALS: BP 125/82; PULSE 59; TEMP 97
--- NOTE | 2017-11-03 11:50 | DS ---
[facility] Detox Discharge Summary Admission Date: 10/29/17 Discharge Date: 11/03/17 - History Present History: Opioid Dependence Pertinent Past History: HTN - Physical Exam Results Vital Signs: Vital Signs Temperature 97 F L 11/03/17 06:23 Pulse Rate 59 L 11/03/17 06:23 Respiratory Rate 18 11/03/17 06:23 Blood Pressure 125/82 11/03/17 06:23 O2 Sat by Pulse Oximetry (%) Pertinent Admission Physical Exam Findings: Withdrawal symptoms Laboratory Tests 10/30/17 10/30/17 10/30/17 07:30 07:30 07:30 WBC 10.2 H RBC 4.38 Hgb 13.1 Hct 39.2 MCV 89.5 MCH 30.0 MCHC 33.5 RDW 14.0 Plt Count 271 MPV 9.2 Sodium 141 Potassium 4.5 Chloride 104 Carbon Dioxide 30 Anion Gap 7 L BUN 10 Creatinine 1.2 Creat Clearance w eGFR > 60 Random Glucose 73 L D Calcium 9.5 Total Bilirubin 0.3 AST 42 H D ALT 47 Alkaline Phosphatase 82 Total Protein 7.8 Albumin 4.2 Urine Color Urine Appearance Urine pH Ur Specific [place] Urine Protein Urine Glucose (UA) Urine Ketones Urine Blood Urine Nitrite Urine Bilirubin Urine Urobilinogen Ur Leukocyte Esterase RPR Titer Nonreactive 10/30/17 17:00 WBC RBC Hgb Hct MCV MCH MCHC RDW Plt Count MPV Sodium Potassium Chloride Carbon Dioxide Anion Gap BUN Creatinine Creat Clearance w eGFR Random Glucose Calcium Total Bilirubin AST ALT Alkaline Phosphatase Total Protein Albumin Urine Color Ltyellow Urine Appearance Clear Urine pH 6.0 Ur Specific [place] 1.009 Urine Protein Negative Urine Glucose (UA) Negative Urine Ketones Negative Urine Blood Negative Urine Nitrite Negative Urine Bilirubin Negative Urine Urobilinogen Negative Ur Leukocyte Esterase Negative RPR Titer Labs reviewed - Treatment Hospital Course: Detox Protocol Followed, Detoxed Safely, Responded well, Discharged Condition Good, Rehab Referral Accepted - Medication Discharge Medications: Ambulatory Orders Clonazepam [Klonopin] 1 mg PO HS 07/04/17 Hydrochlorothiazide [Hctz -] 25 mg PO DAILY #30 tablet 07/08/17 Gabapentin [Neurontin -] 300 mg PO BID 10/29/17 Gabapentin [Neurontin] 600 mg PO HS 10/29/17 Sertraline HCl [Zoloft -] 50 mg PO DAILY 10/29/17 Bupropion HCl [Wellbutrin -] 75 mg PO DAILY #30 tablet 11/02/17 Olanzapine [Zyprexa] 5 mg PO HS #30 tablet 11/02/17 - Diagnosis (1) Insomnia secondary to depression with anxiety Status: Acute (2) Nicotine dependence Status: Chronic Qualifiers: Nicotine product type: cigarettes Substance use status: in withdrawal Qualified Code(s): F17.213 - Nicotine dependence, cigarettes, with withdrawal (3) Opioid dependence with withdrawal Status: Acute (4) Hypertension Status: Chronic Qualifiers: Hypertension type: essential hypertension Qualified Code(s): I10 - Essential (primary) hypertension (5) Post traumatic stress disorder (PTSD) Status: Chronic - AMA Did Patient Leave Against Medical Advice: No (F/U with PCP post rehab)
== END 2017-11-03 09:25 | disposition home or self-care (01) | DRG 773 ==
LOC: YASAS 12:37 → Y3N 17:26
PROVIDERS: ADMIT Surgery; ATTEND Surgery
PROC: HZ2ZZZZ Detoxification Services for Substance Abuse Treatment (ICD-10-PCS; principal; 2017-10-29)
DX: F11.23 Opioid dependence with withdrawal (principal); F12.20 Cannabis dependence, uncomplicated; F17.213 Nicotine dependence, cigarettes, with withdrawal; F51.05 Insomnia due to other mental disorder; F43.10 Post-traumatic stress disorder, unspecified; F19.24 Other psychoactive substance dependence with psychoactive substance-induced mood disorder; F31.9 Bipolar disorder, unspecified; I10 Essential (primary) hypertension; G47.00 Insomnia, unspecified; Z91.013 Allergy to seafood; Z91.14 Patient's other noncompliance with medication regimen; Z87.898 Personal history of other specified conditions
CPT/HCPCS: 36415; 80053; 81003; 85027; 86593; 93005; 93010

== ENCOUNTER 2017-12-13 10:07 | Inpatient (IN) | payer OTHER ==
[2017-12-13 11:13] VITALS: BMI 22.6
--- NOTE | 2017-12-13 15:35 | HP ---
Psychiatrist Admission - Data Date of interview: 12/13/17 Admission source: [facility] Identifying data: This is one of the multiple admissions to inpatient rehabilitation for this 52 years old single AA childless male ,resides with aunt ,supported by PA. Medical History: HTN,Low back pain. Psychiatric History: patient reports first contact with psychiatrist in 1982 due to behavioral issues while being in residential treatment.He was placed on medications for mood instability.He reports first psychiatric hospitalization was in 1987 to [facility] ([facility] for criminal mental aptients0.he was dx with bipolar disorder.patient reports 4 psychaitric hospitalizations.Most recent was in Mar 2016 to [facility] .He had a few suicidal attempts in past (cut his wrists,tried to hang himself while incarcerated) .No psychiatric outpatient care at this .Currently he is no on any psychotropic medicatons.he is willing to restart Seroquel 100 mg po hs,Wellbutrin 75 mg po am. Additional Comment: different legal issues,on probation, about 28 years in long term all together. Vital Signs: Vital Signs - 24 hr 12/13/17 11:06 Temperature 97.1 F L Pulse Rate 49 L Respiratory 19 Rate Blood Pressure 164/109 Allergies/Adverse Reactions: Allergies Allergy/AdvReac Type Severity Reaction Status Date / Time Fish Containing Products Allergy Severe Difficulty Verified 12/13/17 11:37 Breathing No Known Drug Allergies Allergy Verified 12/13/17 11:37 Concur with the findings of this exam: Yes - Substance Abuse/Tx History Hx Alcohol Use: Yes (socially) Hx Substance Use: Yes (heroin since 49 sniffing,cocaine/crack 1 year ago, cannabis since 11 yo) Hx Substance Use Treatment: Yes (longest abstinence time 1 week) Mental Status Exam - Mental Status Exam Alert and Oriented to: Time, Place, Person Cognitive Function: Grossly Intact Patient Appearance: Well Groomed Mood: Sad Affect: Mood Congruent Patient Behavior: Cooperative Speech Pattern: Clear Voice Loudness: Normal Thought Process: Goal Oriented Thought Disorder: Not Present Hallucinations: Denies Suicidal Ideation: Denies Homicidal Ideation: Denies Insight/Judgement: Fair Sleep: Fair Appetite: Good Muscle strength/Tone: Normal Gait/Station: Normal Psychiatric Findings - Problem List ([place] 1, 2,3) (1) Opioid dependence on agonist therapy Current Visit: Yes Status: Chronic (2) Benzodiazepine dependence Current Visit: Yes Status: Chronic (3) Cannabis dependence Current Visit: Yes Status: Chronic (4) Nicotine dependence Current Visit: Yes Status: Chronic Qualifiers: Nicotine product type: cigarettes Substance use status: in withdrawal Qualified Code(s): F17.213 - Nicotine dependence, cigarettes, with withdrawal Comment: . (5) Bipolar disorder Current Visit: Yes Status: Chronic Comment: .as per self-report. (6) Antisocial personality disorder Current Visit: Yes Status: Chronic (7) Tinea pedis Current Visit: Yes Status: Chronic - Initial Treatment Plan Initial Treatment Plan: Restart Wellbutrin 75 mg po am,Seroquel 100 mg po hs.
[2017-12-13] MEDS ORDERED: guaiFENesin/D-METHORPHAN HB 10 ML UNIT-DOSE CUPS PO PRN (16:02)
[2017-12-13] MEDS ORDERED: NICOTINE POLACRILEX 4 MG GUM BC PRN (16:02)
[2017-12-13] MEDS ORDERED: P-EPHED 60MG/TRIPROLIDI 2.5MG TABLET PO PRN (16:02)
[2017-12-13] MEDS ORDERED: MENTHOL/PHENOL 1 EACH UD MM PRN (16:02)
[2017-12-13] MEDS ORDERED: MAGNESIUM CITRATE 300 ML BOTTLE PO PRN (16:02)
[2017-12-13] MEDS ORDERED: MAGNESIUM HYDROX 2400MG/30ML ORAL SUSPENSION 30 ML CUP PO PRN (16:02)
[2017-12-13] MEDS ORDERED: LOPERAMIDE HCL 2 MG CAPSULE PO PRN (16:02)
[2017-12-13] MEDS ORDERED: MAG HYDROX/AL HYDROX/SIMETH 30 ML UNIT-DOSE CUP PO PRN (16:02)
[2017-12-13] MEDS ORDERED: IBUPROFEN 400 MG TABLET (FP) PO PRN (16:02)
[2017-12-13] MEDS ORDERED: hydrOXYzine PAMOATE 50 MG CAPSULE (FP) PO PRN (16:02)
[2017-12-13] MEDS ORDERED: ACETAMINOPHEN 325 MG TABLET (FP) PO PRN (16:02)
[2017-12-13] MEDS: HYDROCHLOROTHIAZIDE 25 MG TABLET (FP) PO SCH (18:09)
[2017-12-13] MEDS: QUEtiapine FUMARATE 100 MG TABLET (FP) PO SCH (20:55)
[2017-12-13] MEDS: THIAMINE HCL 100 MG TABLET (FP) PO SCH (21:28)
[2017-12-13] MEDS: BUPRENORPHINE/NALOXONE 8 MG/2 MG FILM PACKET SL SCH (21:28)
[2017-12-13] MEDS ORDERED: MELATONIN 5 MG TABLETS PO PRN (22:00)
[2017-12-14] MEDS: PRENATAL VITAMINS W/ FOLIC ACID TABLET (FP) PO SCH (10:44)
[2017-12-14] MEDS: buPROPion HCL 75 MG TABLET PO SCH (10:44)
[2017-12-14] MEDS: HYDROCHLOROTHIAZIDE 25 MG TABLET (FP) PO SCH (10:45)
[2017-12-14] MEDS: BUPRENORPHINE/NALOXONE 8 MG/2 MG FILM PACKET SL SCH ×2 (10:45→21:28)
[2017-12-14] MEDS: NICOTINE 21 MG/24 HOURS TOPICAL PATCH TD SCH (10:45)
[2017-12-14 11:01] LABS: URINE APPEARANCE CLEAR; URINE BILIRUBIN NEGATIVE (<2.0 mg/dL); URINE COLOR LTYELLOW; URINE GLUCOSE (UA) NEGATIVE (NEGATIVE); URINE KETONE NEGATIVE (NEGATIVE); URINE LEUK ESTERASE NEGATIVE (NEGATIVE); URINE NITRITE NEGATIVE (NEGATIVE); URINE PROTEIN NEGATIVE (NEGATIVE); URINE UROBILINOGEN NEGATIVE mg/dL (0.2-1.0)
[2017-12-14] MEDS: QUEtiapine FUMARATE 100 MG TABLET (FP) PO SCH (20:33)
[2017-12-14] MEDS: THIAMINE HCL 100 MG TABLET (FP) PO SCH (21:28)
[2017-12-15] MEDS: PRENATAL VITAMINS W/ FOLIC ACID TABLET (FP) PO SCH (10:22)
[2017-12-15] MEDS: NICOTINE 21 MG/24 HOURS TOPICAL PATCH TD SCH (10:22)
[2017-12-15] MEDS: buPROPion HCL 75 MG TABLET PO SCH (10:23)
[2017-12-15] MEDS: BUPRENORPHINE/NALOXONE 8 MG/2 MG FILM PACKET SL SCH ×2 (10:23→22:05)
[2017-12-15] MEDS: HYDROCHLOROTHIAZIDE 25 MG TABLET (FP) PO SCH (10:23)
[2017-12-15] MEDS: THIAMINE HCL 100 MG TABLET (FP) PO SCH (22:05)
[2017-12-15] MEDS: QUEtiapine FUMARATE 100 MG TABLET (FP) PO SCH (22:06)
[2017-12-16] MEDS: NICOTINE 21 MG/24 HOURS TOPICAL PATCH TD SCH (10:53)
[2017-12-16] MEDS: HYDROCHLOROTHIAZIDE 25 MG TABLET (FP) PO SCH (10:53)
[2017-12-16] MEDS: PRENATAL VITAMINS W/ FOLIC ACID TABLET (FP) PO SCH (10:53)
[2017-12-16] MEDS: BUPRENORPHINE/NALOXONE 8 MG/2 MG FILM PACKET SL SCH ×2 (10:53→22:35)
[2017-12-16] MEDS: buPROPion HCL 75 MG TABLET PO SCH (10:53)
--- NOTE | 2017-12-16 13:09 | PN ---
[facility] Progress Note Note: Vital Signs Temperature 98.3 F 12/16/17 06:51 Pulse Rate 60 12/16/17 06:51 Respiratory Rate 18 12/16/17 06:51 Blood Pressure 145/98 12/16/17 06:51 O2 Sat by Pulse Oximetry (%) c/o dry skin and tenia pedis tianctin cream aveeno soap continue to monitor
[2017-12-16] MEDS: QUEtiapine FUMARATE 100 MG TABLET (FP) PO SCH (20:08)
[2017-12-16] MEDS: TOLNAFTATE 1% CREAM 15 GM TUBE TP SCH (22:34)
[2017-12-16] MEDS: THIAMINE HCL 100 MG TABLET (FP) PO SCH (22:35)
[2017-12-17] MEDS: COLLOIDAL OATMEAL 1 BAR EACH TP PRN (10:39)
[2017-12-17] MEDS: buPROPion HCL 75 MG TABLET PO SCH (10:39)
[2017-12-17] MEDS: BUPRENORPHINE/NALOXONE 8 MG/2 MG FILM PACKET SL SCH ×2 (10:39→20:02)
[2017-12-17] MEDS: HYDROCHLOROTHIAZIDE 25 MG TABLET (FP) PO SCH (10:39)
[2017-12-17] MEDS: TOLNAFTATE 1% CREAM 15 GM TUBE TP SCH ×2 (10:40→20:02)
[2017-12-17] MEDS: PRENATAL VITAMINS W/ FOLIC ACID TABLET (FP) PO SCH (10:41)
[2017-12-17] MEDS: NICOTINE 21 MG/24 HOURS TOPICAL PATCH TD SCH (10:41)
[2017-12-17] MEDS ORDERED: TOLNAFTATE 1% CREAM 15 GM TUBE TP SCH (12:58)
--- NOTE | 2017-12-17 16:37 | PN ---
S Progress Note Note: Patient requested to take his 10 pm meds at 8pm. Medication time adjusted.
[2017-12-17] MEDS ORDERED: MELATONIN 5 MG TABLETS PO PRN (16:47)
[2017-12-17] MEDS: QUEtiapine FUMARATE 100 MG TABLET (FP) PO SCH (20:01)
[2017-12-17] MEDS: THIAMINE HCL 100 MG TABLET (FP) PO SCH (20:02)
--- NOTE | 2017-12-18 10:07 | PN ---
Psychiatric Progress Note Vital Signs: Vital Signs Period Temp Pulse Resp BP Sys/Hopper Pulse Ox Last 24 Hr 98.1 F 73 16-18 148/93 Date of Session: 12/18/17 Chief Complaint:: Discharge Note HPI: Patient addressing sedative and Cannabis Dependence comorbid with Opioid Dependence, Nicotine Dependence, Bipolar Disorder and Antisocial Personality Disorder ROS: HTN, Low back pain, Tinea Pedis Current Medications: Active Medications Generic Name Dose Route Start Last Admin Trade Name Freq PRN Reason Stop Dose Admin Acetaminophen 650 mg 12/13/17 16:02 Tylenol - PO Q4H PRN FEVER Al Hydroxide/Mg Hydroxide 30 ml 12/13/17 16:02 Mylanta Oral Suspension - PO Q6H PRN DYSPEPSIA Buprenorphine/Naloxone 1 each 12/17/17 20:00 12/17/17 20:02 Suboxone 8mg/2mg Sl Film - SL 1 each BID@999,1999 SYLVIA Administration Bupropion HCl 75 mg 12/14/17 10:00 12/17/17 10:39 Wellbutrin - PO 75 mg DAILY SYLVIA Administration Colloidal Oatmeal 1 applic 12/16/17 13:07 12/17/17 10:39 Aveeno Soap - TP 1 bar DAILY PRN Administration HYGEINE Eucalyptus/Menthol/Phenol/Sorbitol 1 each 12/13/17 16:02 Cepastat Lozenge - MM Q4H PRN SORE THROAT Guaifenesin 10 ml 12/13/17 16:02 Robitussin Dm - PO Q6H PRN COUGH Hydrochlorothiazide 25 mg 12/13/17 17:30 12/17/17 10:39 Hctz - PO 25 mg DAILY SYLVIA Administration Hydroxyzine Pamoate 50 mg 12/13/17 16:02 Vistaril - PO Q4H PRN AGITATION Ibuprofen 400 mg 12/13/17 16:02 Motrin - PO Q6H PRN Pain level 4-6 Loperamide HCl 4 mg 12/13/17 16:02 Imodium - PO Q6H PRN DIARRHEA Magnesium Citrate 300 ml 12/13/17 16:02 Citroma - PO Q48H PRN CONSTIPATION Magnesium Hydroxide 30 ml 12/13/17 16:02 Milk Of Magnesia - PO DAILY PRN CONSTIPATION Melatonin 5 mg 12/17/17 16:47 Melatonin PO HS@1999 PRN INSOMNIA Nicotine 21 mg 12/14/17 10:00 12/17/17 10:41 Nicoderm Patch - TD Not Given DAILY SYLVIA Nicotine Polacrilex 4 mg 12/13/17 16:02 Nicorette Gum - BC Q2H PRN NICOTINE REPLACEMENT RX Multivit/Folic Acid/Iron 1 tab 12/14/17 10:00 12/17/17 10:41 Vitamins (Sjr) - PO 1 tab DAILY SYLVIA Administration Pseudoephedrine/Triprolidine 1 combo 12/13/17 16:02 Actifed - PO TID PRN NASAL CONGESTION Quetiapine Fumarate 100 mg 12/13/17 20:00 12/17/17 20:01 Seroquel - PO 100 mg HS@1999 SYLVIA Administration Thiamine HCl 100 mg 12/17/17 20:00 12/17/17 20:02 Vitamin B1 - PO 100 mg HS@1999 SYLVIA Administration Tolnaftate 1 applic 12/17/17 20:00 12/17/17 20:02 Tinactin 1% Cream - TP 1 applic BID@ SYLVIA Administration Current Side Effect: No Lab tests ordered: Yes Lab tests reviewed: Yes Provider note:: Patient has completed this program today. He has met his treatment goals and will continue to address his issues in outpatient treatment at [facility]. 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 He responded well to Wellbutrin 75 mg po daily and Seroquel 100 mg po HS. Scripts for 30 days supply of medications are electronically transmitted to [facility] at [address] [place] [address]. He is stable for discharge today Total face to face time:: 35 Mental Status Exam - Mental Status Exam Alert and Oriented to: Time, Place, Person Cognitive Function: Fair Patient Appearance: Well Groomed Mood: Hopeful, Euthymic Affect: Appropriate Patient Behavior: Cooperative Speech Pattern: Clear Voice Loudness: Normal Thought Process: Intact, Goal Oriented Thought Disorder: Not Present Hallucinations: Denies Suicidal Ideation: Denies Homicidal Ideation: Denies Insight/Judgement: Fair Sleep: Fair Appetite: Good Muscle strength/Tone: Normal Gait/Station: Normal Psychiatric Treatment Plan - Problem List (1) Sedative hypnotic or anxiolytic dependence Current Visit: Yes (2) Cannabis dependence Current Visit: Yes (3) Nicotine dependence Current Visit: Yes Qualifiers: Nicotine product type: cigarettes Substance use status: in withdrawal Qualified Code(s): F17.213 - Nicotine dependence, cigarettes, with withdrawal Comment: . (4) Bipolar disorder Current Visit: Yes Comment: .as per self-report. (5) Opioid dependence on agonist therapy Current Visit: Yes (6) Antisocial personality disorder Current Visit: Yes (7) Tinea pedis Current Visit: Yes (8) Hypertension Current Visit: No Qualifiers: Hypertension type: essential hypertension Qualified Code(s): I10 - Essential (primary) hypertension Comment: on meds Initial treatment plan: Patient will be discharged on 12/19/17 and referred to [facility] for outpatient treatment
[2017-12-18] MEDS: BUPRENORPHINE/NALOXONE 8 MG/2 MG FILM PACKET SL SCH ×2 (10:38→20:10)
[2017-12-18] MEDS: HYDROCHLOROTHIAZIDE 25 MG TABLET (FP) PO SCH (10:38)
[2017-12-18] MEDS: buPROPion HCL 75 MG TABLET PO SCH (10:38)
[2017-12-18] MEDS: PRENATAL VITAMINS W/ FOLIC ACID TABLET (FP) PO SCH (10:38)
[2017-12-18] MEDS: NICOTINE 21 MG/24 HOURS TOPICAL PATCH TD SCH (10:38)
[2017-12-18] MEDS: TOLNAFTATE 1% CREAM 15 GM TUBE TP SCH ×2 (10:39→20:11)
[2017-12-18] MEDS: QUEtiapine FUMARATE 100 MG TABLET (FP) PO SCH (20:10)
[2017-12-18] MEDS: THIAMINE HCL 100 MG TABLET (FP) PO SCH (20:10)
[2017-12-19] MEDS: buPROPion HCL 75 MG TABLET PO SCH (10:49)
[2017-12-19] MEDS: HYDROCHLOROTHIAZIDE 25 MG TABLET (FP) PO SCH (10:49)
[2017-12-19] MEDS: TOLNAFTATE 1% CREAM 15 GM TUBE TP SCH ×2 (10:50→20:13)
[2017-12-19] MEDS: PRENATAL VITAMINS W/ FOLIC ACID TABLET (FP) PO SCH (10:50)
[2017-12-19] MEDS: BUPRENORPHINE/NALOXONE 8 MG/2 MG FILM PACKET SL SCH ×2 (10:50→20:13)
[2017-12-19] MEDS: NICOTINE 21 MG/24 HOURS TOPICAL PATCH TD SCH (10:50)
[2017-12-19] MEDS: QUEtiapine FUMARATE 100 MG TABLET (FP) PO SCH (20:13)
[2017-12-19] MEDS: THIAMINE HCL 100 MG TABLET (FP) PO SCH (20:13)
[2017-12-20] MEDS: TOLNAFTATE 1% CREAM 15 GM TUBE TP SCH ×2 (10:36→20:11)
[2017-12-20] MEDS: PRENATAL VITAMINS W/ FOLIC ACID TABLET (FP) PO SCH (10:36)
[2017-12-20] MEDS: BUPRENORPHINE/NALOXONE 8 MG/2 MG FILM PACKET SL SCH ×2 (10:36→20:09)
[2017-12-20] MEDS: buPROPion HCL 75 MG TABLET PO SCH (10:36)
[2017-12-20] MEDS: HYDROCHLOROTHIAZIDE 25 MG TABLET (FP) PO SCH (10:37)
[2017-12-20] MEDS: NICOTINE 21 MG/24 HOURS TOPICAL PATCH TD SCH (10:37)
[2017-12-20] MEDS: THIAMINE HCL 100 MG TABLET (FP) PO SCH (20:09)
[2017-12-20] MEDS: QUEtiapine FUMARATE 100 MG TABLET (FP) PO SCH (20:09)
[2017-12-21] MEDS: BUPRENORPHINE/NALOXONE 8 MG/2 MG FILM PACKET SL SCH ×2 (10:30→20:15)
[2017-12-21] MEDS: TOLNAFTATE 1% CREAM 15 GM TUBE TP SCH ×2 (10:30→20:15)
[2017-12-21] MEDS: PRENATAL VITAMINS W/ FOLIC ACID TABLET (FP) PO SCH (10:30)
[2017-12-21] MEDS: buPROPion HCL 75 MG TABLET PO SCH (10:30)
[2017-12-21] MEDS: HYDROCHLOROTHIAZIDE 25 MG TABLET (FP) PO SCH (10:30)
[2017-12-21] MEDS: NICOTINE 21 MG/24 HOURS TOPICAL PATCH TD SCH (10:30)
[2017-12-21] MEDS ORDERED: PT OWN MED DRAWER 7, Y5N ONE (20:11)
[2017-12-21] MEDS: QUEtiapine FUMARATE 100 MG TABLET (FP) PO SCH (20:15)
[2017-12-21] MEDS: THIAMINE HCL 100 MG TABLET (FP) PO SCH (20:15)
[2017-12-22] MEDS: BUPRENORPHINE/NALOXONE 8 MG/2 MG FILM PACKET SL SCH ×2 (10:31→20:10)
[2017-12-22] MEDS: buPROPion HCL 75 MG TABLET PO SCH (10:31)
[2017-12-22] MEDS: HYDROCHLOROTHIAZIDE 25 MG TABLET (FP) PO SCH (10:31)
[2017-12-22] MEDS: PRENATAL VITAMINS W/ FOLIC ACID TABLET (FP) PO SCH (10:32)
[2017-12-22] MEDS: TOLNAFTATE 1% CREAM 15 GM TUBE TP SCH ×2 (10:32→20:10)
[2017-12-22] MEDS: NICOTINE 21 MG/24 HOURS TOPICAL PATCH TD SCH (10:32)
[2017-12-22] MEDS: QUEtiapine FUMARATE 100 MG TABLET (FP) PO SCH (20:09)
[2017-12-22] MEDS: THIAMINE HCL 100 MG TABLET (FP) PO SCH (20:09)
[2017-12-23] MEDS: buPROPion HCL 75 MG TABLET PO SCH (11:21)
[2017-12-23] MEDS: TOLNAFTATE 1% CREAM 15 GM TUBE TP SCH ×2 (11:22→19:59)
[2017-12-23] MEDS: NICOTINE 21 MG/24 HOURS TOPICAL PATCH TD SCH (11:22)
[2017-12-23] MEDS: PRENATAL VITAMINS W/ FOLIC ACID TABLET (FP) PO SCH (11:22)
[2017-12-23] MEDS: HYDROCHLOROTHIAZIDE 25 MG TABLET (FP) PO SCH (11:22)
[2017-12-23] MEDS: BUPRENORPHINE/NALOXONE 8 MG/2 MG FILM PACKET SL SCH ×2 (11:22→19:59)
[2017-12-23] MEDS: QUEtiapine FUMARATE 100 MG TABLET (FP) PO SCH (19:59)
[2017-12-23] MEDS: THIAMINE HCL 100 MG TABLET (FP) PO SCH (19:59)
[2017-12-24] MEDS: BUPRENORPHINE/NALOXONE 8 MG/2 MG FILM PACKET SL SCH ×2 (10:57→19:58)
[2017-12-24] MEDS: NICOTINE 21 MG/24 HOURS TOPICAL PATCH TD SCH (10:57)
[2017-12-24] MEDS: PRENATAL VITAMINS W/ FOLIC ACID TABLET (FP) PO SCH (10:57)
[2017-12-24] MEDS: TOLNAFTATE 1% CREAM 15 GM TUBE TP SCH ×2 (10:57→19:58)
[2017-12-24] MEDS: HYDROCHLOROTHIAZIDE 25 MG TABLET (FP) PO SCH (10:57)
[2017-12-24] MEDS: buPROPion HCL 75 MG TABLET PO SCH (10:57)
[2017-12-24] MEDS: COLLOIDAL OATMEAL 1 BAR EACH TP PRN (11:08)
[2017-12-24] MEDS: THIAMINE HCL 100 MG TABLET (FP) PO SCH (19:58)
[2017-12-24] MEDS: QUEtiapine FUMARATE 100 MG TABLET (FP) PO SCH (19:58)
[2017-12-25] MEDS: PRENATAL VITAMINS W/ FOLIC ACID TABLET (FP) PO SCH (10:48)
[2017-12-25] MEDS: BUPRENORPHINE/NALOXONE 8 MG/2 MG FILM PACKET SL SCH ×2 (10:48→20:32)
[2017-12-25] MEDS: buPROPion HCL 75 MG TABLET PO SCH (10:48)
[2017-12-25] MEDS: NICOTINE 21 MG/24 HOURS TOPICAL PATCH TD SCH (10:48)
[2017-12-25] MEDS: TOLNAFTATE 1% CREAM 15 GM TUBE TP SCH ×2 (10:49→20:33)
[2017-12-25] MEDS: HYDROCHLOROTHIAZIDE 25 MG TABLET (FP) PO SCH (10:49)
[2017-12-25] MEDS: QUEtiapine FUMARATE 100 MG TABLET (FP) PO SCH (20:32)
[2017-12-25] MEDS: THIAMINE HCL 100 MG TABLET (FP) PO SCH (20:32)
[2017-12-26] MEDS: HYDROCHLOROTHIAZIDE 25 MG TABLET (FP) PO SCH (10:48)
[2017-12-26] MEDS: buPROPion HCL 75 MG TABLET PO SCH (10:48)
[2017-12-26] MEDS: TOLNAFTATE 1% CREAM 15 GM TUBE TP SCH ×2 (10:49→20:26)
[2017-12-26] MEDS: NICOTINE 21 MG/24 HOURS TOPICAL PATCH TD SCH (10:49)
[2017-12-26] MEDS: PRENATAL VITAMINS W/ FOLIC ACID TABLET (FP) PO SCH (10:49)
[2017-12-26] MEDS: BUPRENORPHINE/NALOXONE 8 MG/2 MG FILM PACKET SL SCH ×2 (10:49→20:25)
[2017-12-26] MEDS: THIAMINE HCL 100 MG TABLET (FP) PO SCH (20:25)
[2017-12-26] MEDS: QUEtiapine FUMARATE 100 MG TABLET (FP) PO SCH (20:25)
[2017-12-27] MEDS: HYDROCHLOROTHIAZIDE 25 MG TABLET (FP) PO SCH (10:32)
[2017-12-27] MEDS: buPROPion HCL 75 MG TABLET PO SCH (10:32)
[2017-12-27] MEDS: BUPRENORPHINE/NALOXONE 8 MG/2 MG FILM PACKET SL SCH ×2 (10:32→19:50)
[2017-12-27] MEDS: TOLNAFTATE 1% CREAM 15 GM TUBE TP SCH ×2 (10:33→19:50)
[2017-12-27] MEDS: PRENATAL VITAMINS W/ FOLIC ACID TABLET (FP) PO SCH (10:33)
[2017-12-27] MEDS: NICOTINE 21 MG/24 HOURS TOPICAL PATCH TD SCH (10:33)
[2017-12-27] MEDS: THIAMINE HCL 100 MG TABLET (FP) PO SCH (19:50)
[2017-12-27] MEDS: QUEtiapine FUMARATE 100 MG TABLET (FP) PO SCH (19:50)
[2017-12-28] MEDS: BUPRENORPHINE/NALOXONE 8 MG/2 MG FILM PACKET SL SCH ×2 (10:38→19:51)
[2017-12-28] MEDS: TOLNAFTATE 1% CREAM 15 GM TUBE TP SCH ×2 (10:38→19:54)
[2017-12-28] MEDS: buPROPion HCL 75 MG TABLET PO SCH (10:38)
[2017-12-28] MEDS: HYDROCHLOROTHIAZIDE 25 MG TABLET (FP) PO SCH (10:38)
[2017-12-28] MEDS: PRENATAL VITAMINS W/ FOLIC ACID TABLET (FP) PO SCH (10:38)
[2017-12-28] MEDS: NICOTINE 21 MG/24 HOURS TOPICAL PATCH TD SCH (10:38)
[2017-12-28] MEDS: COLLOIDAL OATMEAL 1 BAR EACH TP PRN (10:40)
[2017-12-28] MEDS: THIAMINE HCL 100 MG TABLET (FP) PO SCH (19:51)
[2017-12-28] MEDS: QUEtiapine FUMARATE 100 MG TABLET (FP) PO SCH (19:51)
[2017-12-29] MEDS: BUPRENORPHINE/NALOXONE 8 MG/2 MG FILM PACKET SL SCH ×2 (10:34→19:57)
[2017-12-29] MEDS: HYDROCHLOROTHIAZIDE 25 MG TABLET (FP) PO SCH (10:34)
[2017-12-29] MEDS: buPROPion HCL 75 MG TABLET PO SCH (10:34)
[2017-12-29] MEDS: PRENATAL VITAMINS W/ FOLIC ACID TABLET (FP) PO SCH (10:35)
[2017-12-29] MEDS: NICOTINE 21 MG/24 HOURS TOPICAL PATCH TD SCH (10:35)
[2017-12-29] MEDS: TOLNAFTATE 1% CREAM 15 GM TUBE TP SCH ×2 (10:35→19:58)
[2017-12-29] MEDS: QUEtiapine FUMARATE 100 MG TABLET (FP) PO SCH (19:57)
[2017-12-29] MEDS: THIAMINE HCL 100 MG TABLET (FP) PO SCH (19:57)
[2017-12-30] MEDS: PRENATAL VITAMINS W/ FOLIC ACID TABLET (FP) PO SCH (10:32)
[2017-12-30] MEDS: TOLNAFTATE 1% CREAM 15 GM TUBE TP SCH ×2 (10:32→20:20)
[2017-12-30] MEDS: HYDROCHLOROTHIAZIDE 25 MG TABLET (FP) PO SCH (10:32)
[2017-12-30] MEDS: buPROPion HCL 75 MG TABLET PO SCH (10:32)
[2017-12-30] MEDS: NICOTINE 21 MG/24 HOURS TOPICAL PATCH TD SCH (10:32)
[2017-12-30] MEDS: BUPRENORPHINE/NALOXONE 8 MG/2 MG FILM PACKET SL SCH ×2 (10:32→20:19)
[2017-12-30] MEDS: THIAMINE HCL 100 MG TABLET (FP) PO SCH (20:19)
[2017-12-30] MEDS: QUEtiapine FUMARATE 100 MG TABLET (FP) PO SCH (20:19)
[2017-12-31] MEDS: TOLNAFTATE 1% CREAM 15 GM TUBE TP SCH ×2 (10:14→20:17)
[2017-12-31] MEDS: HYDROCHLOROTHIAZIDE 25 MG TABLET (FP) PO SCH (10:14)
[2017-12-31] MEDS: buPROPion HCL 75 MG TABLET PO SCH (10:15)
[2017-12-31] MEDS: NICOTINE 21 MG/24 HOURS TOPICAL PATCH TD SCH (10:15)
[2017-12-31] MEDS: PRENATAL VITAMINS W/ FOLIC ACID TABLET (FP) PO SCH (10:15)
[2017-12-31] MEDS: BUPRENORPHINE/NALOXONE 8 MG/2 MG FILM PACKET SL SCH ×2 (10:15→20:16)
[2017-12-31] MEDS: COLLOIDAL OATMEAL 1 BAR EACH TP PRN (10:16)
[2017-12-31] MEDS: THIAMINE HCL 100 MG TABLET (FP) PO SCH (20:16)
[2017-12-31] MEDS: QUEtiapine FUMARATE 100 MG TABLET (FP) PO SCH (20:16)
[2018-01-01] MEDS: HYDROCHLOROTHIAZIDE 25 MG TABLET (FP) PO SCH (10:34)
[2018-01-01] MEDS: TOLNAFTATE 1% CREAM 15 GM TUBE TP SCH ×2 (10:35→19:49)
[2018-01-01] MEDS: BUPRENORPHINE/NALOXONE 8 MG/2 MG FILM PACKET SL SCH ×2 (10:35→19:48)
[2018-01-01] MEDS: buPROPion HCL 75 MG TABLET PO SCH (10:35)
[2018-01-01] MEDS: NICOTINE 21 MG/24 HOURS TOPICAL PATCH TD SCH (10:35)
[2018-01-01] MEDS: PRENATAL VITAMINS W/ FOLIC ACID TABLET (FP) PO SCH (10:35)
--- NOTE | 2018-01-01 14:05 | PN ---
Psychiatric Progress Note Vital Signs: Vital Signs Period Temp Pulse Resp BP Sys/Hopper Pulse Ox Last 24 Hr 97.9 F 69-71 18-18 121-128/82-84 Date of Session: 01/01/18 Chief Complaint:: Discharge visit HPI: opioid,benzo,cannabis dependence comorbid with Bipolar disorder. Current Medications: Active Medications Generic Name Dose Route Start Last Admin Trade Name Freq PRN Reason Stop Dose Admin Acetaminophen 650 mg 12/13/17 16:02 Tylenol - PO Q4H PRN FEVER Al Hydroxide/Mg Hydroxide 30 ml 12/13/17 16:02 Mylanta Oral Suspension - PO Q6H PRN DYSPEPSIA Buprenorphine/Naloxone 1 each 12/17/17 20:00 01/01/18 10:35 Suboxone 8mg/2mg Sl Film - SL 1 each BID@1000,1999 SYLVIA Administration Bupropion HCl 75 mg 12/14/17 10:00 01/01/18 10:35 Wellbutrin - PO 75 mg DAILY SYLVIA Administration Colloidal Oatmeal 1 applic 12/16/17 13:07 12/31/17 10:16 Aveeno Soap - TP 1 bar DAILY PRN Administration HYGEINE Eucalyptus/Menthol/Phenol/Sorbitol 1 each 12/13/17 16:02 Cepastat Lozenge - MM Q4H PRN SORE THROAT Guaifenesin 10 ml 12/13/17 16:02 Robitussin Dm - PO Q6H PRN COUGH Hydrochlorothiazide 25 mg 12/13/17 17:30 01/01/18 10:34 Hctz - PO 25 mg DAILY SYLVIA Administration Hydroxyzine Pamoate 50 mg 12/13/17 16:02 Vistaril - PO Q4H PRN AGITATION Ibuprofen 400 mg 12/13/17 16:02 Motrin - PO Q6H PRN Pain level 4-6 Loperamide HCl 4 mg 12/13/17 16:02 Imodium - PO Q6H PRN DIARRHEA Magnesium Citrate 300 ml 12/13/17 16:02 Citroma - PO Q48H PRN CONSTIPATION Magnesium Hydroxide 30 ml 12/13/17 16:02 Milk Of Magnesia - PO DAILY PRN CONSTIPATION Melatonin 5 mg 12/17/17 16:47 Melatonin PO HS@1999 PRN INSOMNIA Nicotine 21 mg 12/14/17 10:00 01/01/18 10:35 Nicoderm Patch - TD Not Given DAILY SYLVIA Nicotine Polacrilex 4 mg 12/13/17 16:02 Nicorette Gum - BC Q2H PRN NICOTINE REPLACEMENT RX Multivit/Folic Acid/Iron 1 tab 12/14/17 10:00 01/01/18 10:35 Vitamins (Sjr) - PO 1 tab DAILY SYLVIA Administration Pseudoephedrine/Triprolidine 1 combo 12/13/17 16:02 Actifed - PO TID PRN NASAL CONGESTION Quetiapine Fumarate 100 mg 12/13/17 20:00 12/31/17 20:16 Seroquel - PO 100 mg HS@1999 SYLVIA Administration Thiamine HCl 100 mg 12/17/17 20:00 12/31/17 20:16 Vitamin B1 - PO 100 mg HS@1999 [facility] Administration Tolnaftate 1 applic 12/17/17 20:00 01/01/18 10:35 Tinactin 1% Cream - TP Not Given BID@999,1999 [facility] Current Side Effect: No Lab tests ordered: No Lab tests reviewed: Yes Provider note:: patient will complete this program tomorrow 01/02/18.he has met his treatment goals and will continue to address his issues on outpstient basis at [facility] in [facility].patient will continue current medications as per plan:wellbutrin 75 mg po daily,seroquel 100 mg po hs.script s for 30 days provided. Supportive therapy provided focusing on relapse prevention ,coping skills,support utilization has been discussed with the aptient as well as other resourses to maintain recovery. patient is stable for discharge tomorrow 01/01/18. Total face to face time:: 30 Mental Status Exam - Mental Status Exam Alert and Oriented to: Time, Place, Person Cognitive Function: Grossly Intact Patient Appearance: Well Groomed Mood: Hopeful, Euthymic Affect: Appropriate, Mood Congruent Patient Behavior: Cooperative Speech Pattern: Clear Voice Loudness: Normal Thought Process: Goal Oriented Thought Disorder: Not Present Hallucinations: Denies Suicidal Ideation: Denies Homicidal Ideation: Denies Insight/Judgement: Fair Sleep: Fair Appetite: Good Muscle strength/Tone: Normal Gait/Station: Normal Psychiatric Treatment Plan - Problem List (1) Opioid dependence on agonist therapy Current Visit: Yes (2) Benzodiazepine dependence Current Visit: Yes (3) Cannabis dependence Current Visit: Yes (4) Nicotine dependence Current Visit: Yes Qualifiers: Nicotine product type: cigarettes Substance use status: in withdrawal Qualified Code(s): F17.213 - Nicotine dependence, cigarettes, with withdrawal Comment: . (5) Bipolar disorder Current Visit: Yes Comment: .as per self-report. (6) Antisocial personality disorder Current Visit: Yes (7) Tinea pedis Current Visit: Yes
[2018-01-01] MEDS: THIAMINE HCL 100 MG TABLET (FP) PO SCH (19:48)
[2018-01-01] MEDS: QUEtiapine FUMARATE 100 MG TABLET (FP) PO SCH (19:48)
[2018-01-02 06:34] VITALS: BP 138/95; PULSE 64; TEMP 97.8
[2018-01-02] MEDS: HYDROCHLOROTHIAZIDE 25 MG TABLET (FP) PO SCH (10:12)
[2018-01-02] MEDS: PRENATAL VITAMINS W/ FOLIC ACID TABLET (FP) PO SCH (10:12)
[2018-01-02] MEDS: BUPRENORPHINE/NALOXONE 8 MG/2 MG FILM PACKET SL SCH (10:12)
[2018-01-02] MEDS: buPROPion HCL 75 MG TABLET PO SCH (10:12)
[2018-01-02] MEDS: TOLNAFTATE 1% CREAM 15 GM TUBE TP SCH (10:13)
[2018-01-02] MEDS: NICOTINE 21 MG/24 HOURS TOPICAL PATCH TD SCH (10:13)
== END 2018-01-02 10:20 | disposition home or self-care (01) | DRG 772 ==
LOC: YASAS 10:07 → Y5N 14:32
PROVIDERS: ADMIT Psychiatry & Neurology Psychiatry; ATTEND Psychiatry & Neurology Psychiatry
PROC: HZ42ZZZ Group Counseling for Substance Abuse Treatment, Cognitive-Behavioral (ICD-10-PCS; principal; 2017-12-13)
DX: F13.20 Sedative, hypnotic or anxiolytic dependence, uncomplicated (principal); F12.20 Cannabis dependence, uncomplicated; F11.20 Opioid dependence, uncomplicated; F17.213 Nicotine dependence, cigarettes, with withdrawal; F31.9 Bipolar disorder, unspecified; F60.2 Antisocial personality disorder; I10 Essential (primary) hypertension; B35.3 Tinea pedis; Z91.5 Personal history of self-harm
CPT/HCPCS: 81003

== ENCOUNTER 2020-04-19 10:10 | Inpatient (IN) | payer OTHER ==
[2020-04-19 11:45] VITALS: BMI 21.7
[2020-04-19] MEDS ORDERED: MAGNESIUM HYDROX 2400MG/30ML ORAL SUSPENSION 30 ML CUP PO PRN (11:50)
[2020-04-19] MEDS ORDERED: ACETAMINOPHEN 325 MG TABLET (FP) PO PRN ×2 (11:50)
[2020-04-19] MEDS ORDERED: IBUPROFEN 400 MG TABLET (FP) PO PRN (11:50)
[2020-04-19] MEDS ORDERED: NICOTINE POLACRILEX 2 MG GUM BUC PRN (11:50)
[2020-04-19] MEDS ORDERED: MAG HYDROX/AL HYDROX/SIMETH 30 ML UNIT-DOSE CUP PO PRN (11:50)
[2020-04-19] MEDS ORDERED: MENTHOL/PHENOL 1 EACH UD MM PRN (11:50)
[2020-04-19] MEDS ORDERED: METHADONE HCL 10 MG TABLET (FOR DETOX USE ONLY) PO ONE (11:50)
[2020-04-19] MEDS ORDERED: BISMUTH SUBSALICYLATE 262 MG/15 ML BTL PO PRN (11:50)
[2020-04-19] MEDS ORDERED: MAGNESIUM CITRATE 300 ML BOTTLE PO PRN (11:50)
[2020-04-19] MEDS ORDERED: ONDANSETRON *ODT* 4 MG TABLET SL PRN (11:50)
[2020-04-19] MEDS: hydrOXYzine PAMOATE 25 MG CAPSULE (FP) PO SCH ×3 (14:25→22:47)
[2020-04-19] MEDS: PRENATAL VITAMINS W/ FOLIC ACID TABLET (FP) PO SCH (14:25)
[2020-04-19] MEDS: cloNIDine HCL 0.1 MG TABLET PO PRN (14:25)
[2020-04-19] MEDS: NICOTINE 21 MG/24 HOURS TOPICAL PATCH TD SCH (14:26)
[2020-04-19 16:06] LABS: HEMATOCRIT 35.7 % (35.4-49); MCH 29.9 pg (25.7-33.7); MCHC 33.6 g/dl (32.0-35.9); MEAN CELL VOLUME 88.8 fl (80-96); MEAN PLT VOLUME 8.5 fl (7.5-11.1); PLATELET COUNT 287 K/MM3 (134-434); RBC 4.02 M/mm3 (4.00-5.60); WHITE BLOOD COUNT 8.8 K/mm3 (4.0-10.0)
[2020-04-19 16:13] LABS: POTASSIUM 5.3 mmol/L (3.5-5.1)
[2020-04-19 16:25] LABS: BLOOD UREA NITROGEN 9.7 mg/dL (7-18); CALCIUM 9.5 mg/dL (8.5-10.1)
[2020-04-19 16:28] LABS: CREATININE 1.3 mg/dL (0.55-1.3)
[2020-04-19 16:29] LABS: BILIRUBIN,TOTAL 0.8 mg/dL (0.2-1)
[2020-04-19 16:30] LABS: TOT PROT 7.6 g/dl (6.4-8.2)
[2020-04-19 16:31] LABS: ALBUMIN 4.1 g/dl (3.4-5.0)
[2020-04-19] MEDS ORDERED: MELATONIN 5 MG TABLETS PO SCH (22:00)
[2020-04-19] MEDS: THIAMINE HCL 100 MG TABLET (FP) PO SCH (22:47)
[2020-04-20] MEDS: hydrOXYzine PAMOATE 25 MG CAPSULE (FP) PO SCH ×2 (05:46→09:55)
[2020-04-20] MEDS ORDERED: METHADONE HCL 10 MG TABLET (FOR DETOX USE ONLY) ONE (09:08)
[2020-04-20] MEDS ORDERED: METHADONE HCL 5 MG TABLET (FOR DETOX USE ONLY) ONE (09:08)
[2020-04-20] MEDS: NICOTINE 21 MG/24 HOURS TOPICAL PATCH TD SCH (09:56)
[2020-04-20] MEDS: PRENATAL VITAMINS W/ FOLIC ACID TABLET (FP) PO SCH (09:56)
[2020-04-20] MEDS ORDERED: METHADONE (DETOX) 20 MG, METHADONE (DETOX) 5 MG PO ONE (10:00)
[2020-04-20 13:02] LABS: HIV INTERPRETATION NEGATIVE (NEGATIVE)
[2020-04-20] MEDS: cloNIDine HCL 0.1 MG TABLET PO PRN ×2 (18:10→22:27)
[2020-04-20] MEDS: hydrOXYzine PAMOATE 25 MG CAPSULE (FP) PO PRN ×2 (18:11→22:29)
[2020-04-20] MEDS: THIAMINE HCL 100 MG TABLET (FP) PO SCH (22:26)
[2020-04-20] MEDS: MELATONIN 5 MG TABLETS PO SCH (22:27)
[2020-04-20] MEDS: METHOCARBAMOL 500 MG TABLET PO PRN (22:30)
[2020-04-21] MEDS: METHOCARBAMOL 500 MG TABLET PO PRN ×2 (09:53→22:52)
[2020-04-21] MEDS: PRENATAL VITAMINS W/ FOLIC ACID TABLET (FP) PO SCH (09:54)
[2020-04-21] MEDS: hydrOXYzine PAMOATE 25 MG CAPSULE (FP) PO PRN ×2 (09:54→22:52)
[2020-04-21] MEDS: NICOTINE 21 MG/24 HOURS TOPICAL PATCH TD SCH (09:54)
[2020-04-21] MEDS ORDERED: METHADONE HCL 10 MG TABLET (FOR DETOX USE ONLY) PO ONE (10:00)
[2020-04-21] MEDS: MELATONIN 5 MG TABLETS PO SCH (22:52)
[2020-04-21] MEDS: THIAMINE HCL 100 MG TABLET (FP) PO SCH (22:52)
[2020-04-21] MEDS: cloNIDine HCL 0.1 MG TABLET PO PRN (22:52)
[2020-04-22] MEDS ORDERED: METHADONE HCL 10 MG TABLET (FOR DETOX USE ONLY) ONE (08:57)
[2020-04-22] MEDS ORDERED: METHADONE HCL 5 MG TABLET (FOR DETOX USE ONLY) ONE (08:57)
[2020-04-22] MEDS: PRENATAL VITAMINS W/ FOLIC ACID TABLET (FP) PO SCH (09:17)
[2020-04-22] MEDS: NICOTINE 21 MG/24 HOURS TOPICAL PATCH TD SCH (09:19)
[2020-04-22] MEDS ORDERED: METHADONE (DETOX) 10 MG, METHADONE (DETOX) 5 MG PO ONE (10:00)
[2020-04-22] MEDS: MELATONIN 5 MG TABLETS PO SCH (22:36)
[2020-04-22] MEDS: THIAMINE HCL 100 MG TABLET (FP) PO SCH (22:37)
[2020-04-23] MEDS: NICOTINE 21 MG/24 HOURS TOPICAL PATCH TD SCH (09:59)
[2020-04-23] MEDS: PRENATAL VITAMINS W/ FOLIC ACID TABLET (FP) PO SCH (09:59)
[2020-04-23] MEDS ORDERED: METHADONE HCL 10 MG TABLET (FOR DETOX USE ONLY) PO ONE (10:00)
[2020-04-23] MEDS: hydrOXYzine PAMOATE 25 MG CAPSULE (FP) PO PRN (22:27)
[2020-04-23] MEDS: MELATONIN 5 MG TABLETS PO SCH (22:27)
[2020-04-23] MEDS: THIAMINE HCL 100 MG TABLET (FP) PO SCH (22:27)
[2020-04-23] MEDS: METHOCARBAMOL 500 MG TABLET PO PRN (22:28)
[2020-04-24] MEDS ORDERED: METHADONE HCL 5 MG TABLET (FOR DETOX USE ONLY) PO ONE (06:00)
[2020-04-24 09:46] VITALS: BP 146/92; PULSE 110; TEMP 98.2
[2020-04-24] MEDS: NICOTINE 21 MG/24 HOURS TOPICAL PATCH TD SCH (10:22)
[2020-04-24] MEDS: PRENATAL VITAMINS W/ FOLIC ACID TABLET (FP) PO SCH (10:22)
== END 2020-04-24 11:25 | disposition other institution (70) | DRG 773 ==
LOC: YASAS 10:10 → Y3N 13:01
PROVIDERS: ADMIT Allergy & Immunology; ATTEND Allergy & Immunology
PROC: HZ2ZZZZ Detoxification Services for Substance Abuse Treatment (ICD-10-PCS; principal; 2020-04-19)
DX: F11.23 Opioid dependence with withdrawal (principal); F14.20 Cocaine dependence, uncomplicated; F12.20 Cannabis dependence, uncomplicated; F17.210 Nicotine dependence, cigarettes, uncomplicated; F19.282 Other psychoactive substance dependence with psychoactive substance-induced sleep disorder; F19.24 Other psychoactive substance dependence with psychoactive substance-induced mood disorder; F31.9 Bipolar disorder, unspecified; F20.9 Schizophrenia, unspecified; F43.10 Post-traumatic stress disorder, unspecified; F51.05 Insomnia due to other mental disorder; Z87.828 Personal history of other (healed) physical injury and trauma; Z91.410 Personal history of adult physical and sexual abuse; Z91.14 Patient's other noncompliance with medication regimen; Z91.013 Allergy to seafood
CPT/HCPCS: 36415; 80053; 84132; 85027; 86780; 87389; C9803; J0735; U0003

== ENCOUNTER 2020-04-24 11:26 | Inpatient (IN) | payer OTHER ==
[2020-04-24] MEDS ORDERED: NICOTINE POLACRILEX 2 MG GUM BUC PRN (12:43)
[2020-04-24] MEDS ORDERED: IBUPROFEN 400 MG TABLET (FP) PO PRN (12:43)
[2020-04-24] MEDS ORDERED: LOPERAMIDE HCL 2 MG CAPSULE PO PRN (12:43)
[2020-04-24] MEDS ORDERED: MAG HYDROX/AL HYDROX/SIMETH 30 ML UNIT-DOSE CUP PO PRN (12:43)
[2020-04-24] MEDS ORDERED: MAGNESIUM CITRATE 300 ML BOTTLE PO PRN (12:43)
[2020-04-24] MEDS ORDERED: MENTHOL/PHENOL 1 EACH UD MM PRN (12:43)
[2020-04-24] MEDS ORDERED: P-EPHED 60MG/TRIPROLIDI 2.5MG TABLET PO PRN (12:43)
[2020-04-24] MEDS ORDERED: guaiFENesin 200 MG/10 ML 10 ML UNIT-DOSE CUPS PO PRN (12:43)
[2020-04-24] MEDS ORDERED: MAGNESIUM HYDROX 2400MG/30ML ORAL SUSPENSION 30 ML CUP PO PRN (12:43)
[2020-04-24] MEDS ORDERED: ACETAMINOPHEN 325 MG TABLET (FP) PO PRN (12:43)
[2020-04-24] MEDS ORDERED: cloNIDine HCL 0.1 MG TABLET PO ONE (15:53)
[2020-04-24] MEDS: hydrOXYzine PAMOATE 25 MG CAPSULE (FP) PO PRN (16:00)
[2020-04-24] MEDS: amLODIPine BESYLATE 5 MG TABLET (FP) PO SCH (16:34)
[2020-04-24] MEDS: MELATONIN 5 MG TABLETS PO SCH (21:07)
[2020-04-24] MEDS: THIAMINE HCL 100 MG TABLET (FP) PO SCH (21:07)
[2020-04-25] MEDS: HYDROCHLOROTHIAZIDE 25 MG TABLET (FP) PO SCH (08:47)
[2020-04-25] MEDS: NICOTINE 21 MG/24 HOURS TOPICAL PATCH TD SCH (10:00)
[2020-04-25] MEDS: PRENATAL VITAMINS W/ FOLIC ACID TABLET (FP) PO SCH (10:00)
[2020-04-25] MEDS: amLODIPine BESYLATE 5 MG TABLET (FP) PO SCH (10:00)
[2020-04-25] MEDS: QUEtiapine FUMARATE 100 MG TABLET (FP) PO SCH (22:03)
[2020-04-25] MEDS: THIAMINE HCL 100 MG TABLET (FP) PO SCH (22:04)
[2020-04-25] MEDS: MELATONIN 5 MG TABLETS PO SCH (22:04)
[2020-04-26] MEDS: HYDROCHLOROTHIAZIDE 25 MG TABLET (FP) PO SCH (06:28)
[2020-04-26] MEDS: NICOTINE 21 MG/24 HOURS TOPICAL PATCH TD SCH (10:55)
[2020-04-26] MEDS: PRENATAL VITAMINS W/ FOLIC ACID TABLET (FP) PO SCH (10:55)
[2020-04-26] MEDS: amLODIPine BESYLATE 5 MG TABLET (FP) PO SCH (10:55)
[2020-04-26] MEDS: MELATONIN 5 MG TABLETS PO SCH (21:06)
[2020-04-26] MEDS: THIAMINE HCL 100 MG TABLET (FP) PO SCH (21:06)
[2020-04-26] MEDS: QUEtiapine FUMARATE 100 MG TABLET (FP) PO SCH (21:06)
[2020-04-27] MEDS: HYDROCHLOROTHIAZIDE 25 MG TABLET (FP) PO SCH (06:12)
[2020-04-27] MEDS: NICOTINE 21 MG/24 HOURS TOPICAL PATCH TD SCH (09:38)
[2020-04-27] MEDS: PRENATAL VITAMINS W/ FOLIC ACID TABLET (FP) PO SCH (09:38)
[2020-04-27] MEDS: amLODIPine BESYLATE 5 MG TABLET (FP) PO SCH (09:38)
[2020-04-27] MEDS: hydrOXYzine PAMOATE 25 MG CAPSULE (FP) PO PRN (11:11)
[2020-04-27] MEDS ORDERED: BUPRENORPHINE/NALOXONE 2 MG/0.5 MG FILM PACKET SL ONE (12:19)
[2020-04-27] MEDS: MELATONIN 5 MG TABLETS PO SCH (21:39)
[2020-04-27] MEDS: THIAMINE HCL 100 MG TABLET (FP) PO SCH (21:40)
[2020-04-27] MEDS: BUPRENORPHINE/NALOXONE 2 MG/0.5 MG FILM PACKET SL SCH (21:40)
[2020-04-27] MEDS: QUEtiapine FUMARATE 100 MG TABLET (FP) PO SCH (21:40)
[2020-04-28] MEDS: HYDROCHLOROTHIAZIDE 25 MG TABLET (FP) PO SCH (05:59)
[2020-04-28] MEDS: amLODIPine BESYLATE 5 MG TABLET (FP) PO SCH (10:22)
[2020-04-28] MEDS: NICOTINE 21 MG/24 HOURS TOPICAL PATCH TD SCH (10:22)
[2020-04-28] MEDS: PRENATAL VITAMINS W/ FOLIC ACID TABLET (FP) PO SCH (10:22)
[2020-04-28] MEDS: BUPRENORPHINE/NALOXONE 2 MG/0.5 MG FILM PACKET SL SCH ×2 (10:22→21:13)
[2020-04-28] MEDS: hydrOXYzine PAMOATE 25 MG CAPSULE (FP) PO PRN (10:23)
[2020-04-28] MEDS: QUEtiapine FUMARATE 100 MG TABLET (FP) PO SCH (21:12)
[2020-04-28] MEDS: THIAMINE HCL 100 MG TABLET (FP) PO SCH (21:12)
[2020-04-28] MEDS: MELATONIN 5 MG TABLETS PO SCH (21:12)
[2020-04-29] MEDS: HYDROCHLOROTHIAZIDE 25 MG TABLET (FP) PO SCH (06:36)
[2020-04-29] MEDS: PRENATAL VITAMINS W/ FOLIC ACID TABLET (FP) PO SCH (09:42)
[2020-04-29] MEDS: BUPRENORPHINE/NALOXONE 2 MG/0.5 MG FILM PACKET SL SCH ×2 (09:42→21:42)
[2020-04-29] MEDS: amLODIPine BESYLATE 5 MG TABLET (FP) PO SCH (09:42)
[2020-04-29] MEDS: NICOTINE 21 MG/24 HOURS TOPICAL PATCH TD SCH (10:33)
[2020-04-29] MEDS: THIAMINE HCL 100 MG TABLET (FP) PO SCH (21:42)
[2020-04-29] MEDS: QUEtiapine FUMARATE 200 MG TABLET PO SCH (21:42)
[2020-04-29] MEDS: MELATONIN 5 MG TABLETS PO SCH (21:42)
[2020-04-29] MEDS: MINERAL OIL/PETROLAT/WATER TOPICAL CREAM 113 GM JAR TP SCH (21:43)
[2020-04-30] MEDS: HYDROCHLOROTHIAZIDE 25 MG TABLET (FP) PO SCH (06:11)
[2020-04-30] MEDS: PRENATAL VITAMINS W/ FOLIC ACID TABLET (FP) PO SCH (09:37)
[2020-04-30] MEDS: amLODIPine BESYLATE 5 MG TABLET (FP) PO SCH (09:37)
[2020-04-30] MEDS: BUPRENORPHINE/NALOXONE 2 MG/0.5 MG FILM PACKET SL SCH ×2 (09:37→21:14)
[2020-04-30] MEDS: MINERAL OIL/PETROLAT/WATER TOPICAL CREAM 113 GM JAR TP SCH ×2 (09:38→21:53)
[2020-04-30] MEDS: NICOTINE 21 MG/24 HOURS TOPICAL PATCH TD SCH (09:38)
[2020-04-30] MEDS: MELATONIN 5 MG TABLETS PO SCH (21:14)
[2020-04-30] MEDS: THIAMINE HCL 100 MG TABLET (FP) PO SCH (21:14)
[2020-04-30] MEDS: QUEtiapine FUMARATE 200 MG TABLET PO SCH (21:14)
[2020-05-01] MEDS: HYDROCHLOROTHIAZIDE 25 MG TABLET (FP) PO SCH (07:28)
[2020-05-01] MEDS: PRENATAL VITAMINS W/ FOLIC ACID TABLET (FP) PO SCH (09:52)
[2020-05-01] MEDS: BUPRENORPHINE/NALOXONE 2 MG/0.5 MG FILM PACKET SL SCH ×2 (09:52→21:07)
[2020-05-01] MEDS: amLODIPine BESYLATE 5 MG TABLET (FP) PO SCH (09:52)
[2020-05-01] MEDS: MINERAL OIL/PETROLAT/WATER TOPICAL CREAM 113 GM JAR TP SCH ×2 (09:53→21:08)
[2020-05-01] MEDS: NICOTINE 21 MG/24 HOURS TOPICAL PATCH TD SCH (09:53)
[2020-05-01] MEDS: THIAMINE HCL 100 MG TABLET (FP) PO SCH (21:07)
[2020-05-01] MEDS: QUEtiapine FUMARATE 200 MG TABLET PO SCH (21:07)
[2020-05-01] MEDS: MELATONIN 5 MG TABLETS PO SCH (21:07)
[2020-05-02] MEDS: HYDROCHLOROTHIAZIDE 25 MG TABLET (FP) PO SCH (06:10)
[2020-05-02] MEDS: BUPRENORPHINE/NALOXONE 2 MG/0.5 MG FILM PACKET SL SCH ×2 (10:00→21:06)
[2020-05-02] MEDS: amLODIPine BESYLATE 5 MG TABLET (FP) PO SCH (10:00)
[2020-05-02] MEDS: MINERAL OIL/PETROLAT/WATER TOPICAL CREAM 113 GM JAR TP SCH ×2 (10:01→21:07)
[2020-05-02] MEDS: PRENATAL VITAMINS W/ FOLIC ACID TABLET (FP) PO SCH (10:01)
[2020-05-02] MEDS: NICOTINE 21 MG/24 HOURS TOPICAL PATCH TD SCH (10:01)
[2020-05-02] MEDS: QUEtiapine FUMARATE 200 MG TABLET PO SCH (21:05)
[2020-05-02] MEDS: THIAMINE HCL 100 MG TABLET (FP) PO SCH (21:05)
[2020-05-02] MEDS: MELATONIN 5 MG TABLETS PO SCH (21:05)
[2020-05-03] MEDS: HYDROCHLOROTHIAZIDE 25 MG TABLET (FP) PO SCH (06:22)
[2020-05-03] MEDS: PRENATAL VITAMINS W/ FOLIC ACID TABLET (FP) PO SCH (10:02)
[2020-05-03] MEDS: MINERAL OIL/PETROLAT/WATER TOPICAL CREAM 113 GM JAR TP SCH ×2 (10:02→21:32)
[2020-05-03] MEDS: NICOTINE 21 MG/24 HOURS TOPICAL PATCH TD SCH (10:02)
[2020-05-03] MEDS: BUPRENORPHINE/NALOXONE 2 MG/0.5 MG FILM PACKET SL SCH ×2 (10:02→21:32)
[2020-05-03] MEDS: amLODIPine BESYLATE 5 MG TABLET (FP) PO SCH (10:02)
[2020-05-03] MEDS: MELATONIN 5 MG TABLETS PO PRN (21:32)
[2020-05-03] MEDS: QUEtiapine FUMARATE 200 MG TABLET PO SCH (21:32)
[2020-05-03] MEDS: THIAMINE HCL 100 MG TABLET (FP) PO SCH (21:32)
[2020-05-04] MEDS: HYDROCHLOROTHIAZIDE 25 MG TABLET (FP) PO SCH (06:52)
[2020-05-04] MEDS: amLODIPine BESYLATE 5 MG TABLET (FP) PO SCH (10:17)
[2020-05-04] MEDS: BUPRENORPHINE/NALOXONE 2 MG/0.5 MG FILM PACKET SL SCH ×2 (10:17→21:15)
[2020-05-04] MEDS: PRENATAL VITAMINS W/ FOLIC ACID TABLET (FP) PO SCH (10:17)
[2020-05-04] MEDS: MINERAL OIL/PETROLAT/WATER TOPICAL CREAM 113 GM JAR TP SCH ×2 (10:18→21:15)
[2020-05-04] MEDS: NICOTINE 21 MG/24 HOURS TOPICAL PATCH TD SCH (10:18)
[2020-05-04] MEDS: THIAMINE HCL 100 MG TABLET (FP) PO SCH (21:15)
[2020-05-04] MEDS: QUEtiapine FUMARATE 200 MG TABLET PO SCH (21:15)
[2020-05-04] MEDS: MELATONIN 5 MG TABLETS PO PRN (21:15)
[2020-05-05] MEDS: HYDROCHLOROTHIAZIDE 25 MG TABLET (FP) PO SCH (06:20)
[2020-05-05] MEDS: amLODIPine BESYLATE 5 MG TABLET (FP) PO SCH (10:20)
[2020-05-05] MEDS: PRENATAL VITAMINS W/ FOLIC ACID TABLET (FP) PO SCH (10:20)
[2020-05-05] MEDS: BUPRENORPHINE/NALOXONE 2 MG/0.5 MG FILM PACKET SL SCH ×2 (10:20→21:53)
[2020-05-05] MEDS: NICOTINE 21 MG/24 HOURS TOPICAL PATCH TD SCH (10:22)
[2020-05-05] MEDS: MINERAL OIL/PETROLAT/WATER TOPICAL CREAM 113 GM JAR TP SCH ×2 (10:22→21:58)
[2020-05-05] MEDS: QUEtiapine FUMARATE 200 MG TABLET PO SCH (21:52)
[2020-05-05] MEDS: MELATONIN 5 MG TABLETS PO PRN (21:52)
[2020-05-05] MEDS: THIAMINE HCL 100 MG TABLET (FP) PO SCH (21:52)
[2020-05-06] MEDS: HYDROCHLOROTHIAZIDE 25 MG TABLET (FP) PO SCH (06:16)
[2020-05-06] MEDS: amLODIPine BESYLATE 5 MG TABLET (FP) PO SCH (09:57)
[2020-05-06] MEDS: PRENATAL VITAMINS W/ FOLIC ACID TABLET (FP) PO SCH (09:57)
[2020-05-06] MEDS: NICOTINE 21 MG/24 HOURS TOPICAL PATCH TD SCH (09:58)
[2020-05-06] MEDS: BUPRENORPHINE/NALOXONE 2 MG/0.5 MG FILM PACKET SL SCH ×2 (09:58→21:08)
[2020-05-06] MEDS: MINERAL OIL/PETROLAT/WATER TOPICAL CREAM 113 GM JAR TP SCH ×2 (09:59→21:09)
[2020-05-06] MEDS: THIAMINE HCL 100 MG TABLET (FP) PO SCH (21:07)
[2020-05-06] MEDS: MELATONIN 5 MG TABLETS PO PRN (21:07)
[2020-05-06] MEDS: QUEtiapine FUMARATE 200 MG TABLET PO SCH (21:08)
[2020-05-07] MEDS: HYDROCHLOROTHIAZIDE 25 MG TABLET (FP) PO SCH (06:31)
[2020-05-07] MEDS: PRENATAL VITAMINS W/ FOLIC ACID TABLET (FP) PO SCH (10:08)
[2020-05-07] MEDS: MINERAL OIL/PETROLAT/WATER TOPICAL CREAM 113 GM JAR TP SCH ×2 (10:09→21:23)
[2020-05-07] MEDS: amLODIPine BESYLATE 5 MG TABLET (FP) PO SCH (10:09)
[2020-05-07] MEDS: BUPRENORPHINE/NALOXONE 2 MG/0.5 MG FILM PACKET SL SCH ×2 (10:10→21:24)
[2020-05-07] MEDS: NICOTINE 21 MG/24 HOURS TOPICAL PATCH TD SCH (10:11)
[2020-05-07] MEDS ORDERED: PT OWN MED DRAWER 7, Y5N ONE (19:10)
[2020-05-07] MEDS: THIAMINE HCL 100 MG TABLET (FP) PO SCH (21:23)
[2020-05-07] MEDS: MELATONIN 5 MG TABLETS PO PRN (21:23)
[2020-05-07] MEDS: QUEtiapine FUMARATE 200 MG TABLET PO SCH (21:23)
[2020-05-08] MEDS: HYDROCHLOROTHIAZIDE 25 MG TABLET (FP) PO SCH (06:43)
[2020-05-08] MEDS ORDERED: PT OWN MED DRAWER 7, Y5N ONE (08:24)
[2020-05-08] MEDS: amLODIPine BESYLATE 5 MG TABLET (FP) PO SCH (09:28)
[2020-05-08] MEDS: NICOTINE 21 MG/24 HOURS TOPICAL PATCH TD SCH (09:28)
[2020-05-08] MEDS: MINERAL OIL/PETROLAT/WATER TOPICAL CREAM 113 GM JAR TP SCH ×2 (09:28→21:09)
[2020-05-08] MEDS: PRENATAL VITAMINS W/ FOLIC ACID TABLET (FP) PO SCH (09:29)
[2020-05-08] MEDS: BUPRENORPHINE/NALOXONE 2 MG/0.5 MG FILM PACKET SL SCH ×2 (09:29→21:09)
[2020-05-08] MEDS: THIAMINE HCL 100 MG TABLET (FP) PO SCH (21:07)
[2020-05-08] MEDS: MELATONIN 5 MG TABLETS PO PRN (21:08)
[2020-05-08] MEDS: QUEtiapine FUMARATE 200 MG TABLET PO SCH (21:08)
[2020-05-09] MEDS: HYDROCHLOROTHIAZIDE 25 MG TABLET (FP) PO SCH (06:31)
[2020-05-09] MEDS: amLODIPine BESYLATE 5 MG TABLET (FP) PO SCH (10:06)
[2020-05-09] MEDS: BUPRENORPHINE/NALOXONE 2 MG/0.5 MG FILM PACKET SL SCH ×2 (10:06→22:20)
[2020-05-09] MEDS: PRENATAL VITAMINS W/ FOLIC ACID TABLET (FP) PO SCH (10:06)
[2020-05-09] MEDS: MINERAL OIL/PETROLAT/WATER TOPICAL CREAM 113 GM JAR TP SCH ×2 (10:07→21:49)
[2020-05-09] MEDS: NICOTINE 21 MG/24 HOURS TOPICAL PATCH TD SCH (10:07)
[2020-05-09] MEDS: MELATONIN 5 MG TABLETS PO PRN (21:48)
[2020-05-09] MEDS: THIAMINE HCL 100 MG TABLET (FP) PO SCH (21:48)
[2020-05-09] MEDS: QUEtiapine FUMARATE 200 MG TABLET PO SCH (21:48)
[2020-05-10] MEDS: HYDROCHLOROTHIAZIDE 25 MG TABLET (FP) PO SCH (06:17)
[2020-05-10] MEDS: amLODIPine BESYLATE 5 MG TABLET (FP) PO SCH (09:47)
[2020-05-10] MEDS: BUPRENORPHINE/NALOXONE 2 MG/0.5 MG FILM PACKET SL SCH ×2 (09:47→21:05)
[2020-05-10] MEDS: PRENATAL VITAMINS W/ FOLIC ACID TABLET (FP) PO SCH (09:47)
[2020-05-10] MEDS: MINERAL OIL/PETROLAT/WATER TOPICAL CREAM 113 GM JAR TP SCH ×2 (09:49→21:06)
[2020-05-10] MEDS: NICOTINE 21 MG/24 HOURS TOPICAL PATCH TD SCH (09:49)
[2020-05-10] MEDS: QUEtiapine FUMARATE 200 MG TABLET PO SCH (21:05)
[2020-05-10] MEDS: MELATONIN 5 MG TABLETS PO PRN (21:05)
[2020-05-10] MEDS: THIAMINE HCL 100 MG TABLET (FP) PO SCH (21:05)
[2020-05-11] MEDS: HYDROCHLOROTHIAZIDE 25 MG TABLET (FP) PO SCH (06:41)
[2020-05-11] MEDS: PRENATAL VITAMINS W/ FOLIC ACID TABLET (FP) PO SCH (09:51)
[2020-05-11] MEDS: amLODIPine BESYLATE 5 MG TABLET (FP) PO SCH (09:52)
[2020-05-11] MEDS: NICOTINE 21 MG/24 HOURS TOPICAL PATCH TD SCH (09:52)
[2020-05-11] MEDS: MINERAL OIL/PETROLAT/WATER TOPICAL CREAM 113 GM JAR TP SCH ×2 (09:52→22:01)
[2020-05-11] MEDS: BUPRENORPHINE/NALOXONE 2 MG/0.5 MG FILM PACKET SL SCH ×3 (10:51→22:01)
[2020-05-11] MEDS: MELATONIN 5 MG TABLETS PO PRN (22:00)
[2020-05-11] MEDS: QUEtiapine FUMARATE 200 MG TABLET PO SCH (22:00)
[2020-05-11] MEDS: THIAMINE HCL 100 MG TABLET (FP) PO SCH (22:00)
[2020-05-12] MEDS: HYDROCHLOROTHIAZIDE 25 MG TABLET (FP) PO SCH (06:15)
[2020-05-12 07:05] VITALS: TEMP 97.7
[2020-05-12 09:58] VITALS: BP 128/74; PULSE 89
[2020-05-12] MEDS: BUPRENORPHINE/NALOXONE 2 MG/0.5 MG FILM PACKET SL SCH (10:13)
[2020-05-12] MEDS: NICOTINE 21 MG/24 HOURS TOPICAL PATCH TD SCH (10:13)
[2020-05-12] MEDS: amLODIPine BESYLATE 5 MG TABLET (FP) PO SCH (10:13)
[2020-05-12] MEDS: MINERAL OIL/PETROLAT/WATER TOPICAL CREAM 113 GM JAR TP SCH (10:13)
[2020-05-12] MEDS: PRENATAL VITAMINS W/ FOLIC ACID TABLET (FP) PO SCH (10:13)
== END 2020-05-12 12:20 | disposition home or self-care (01) | DRG 772 ==
LOC: YASAS 11:26 → Y3W 11:27
PROVIDERS: ADMIT Allergy & Immunology; ATTEND Allergy & Immunology
PROC: HZ42ZZZ Group Counseling for Substance Abuse Treatment, Cognitive-Behavioral (ICD-10-PCS; principal; 2020-04-24)
DX: F11.20 Opioid dependence, uncomplicated (principal); F14.20 Cocaine dependence, uncomplicated; F12.20 Cannabis dependence, uncomplicated; F17.210 Nicotine dependence, cigarettes, uncomplicated; F19.24 Other psychoactive substance dependence with psychoactive substance-induced mood disorder; F25.9 Schizoaffective disorder, unspecified; F31.9 Bipolar disorder, unspecified; F43.10 Post-traumatic stress disorder, unspecified; G47.00 Insomnia, unspecified; M54.5 Low back pain; G89.29 Other chronic pain; Z87.828 Personal history of other (healed) physical injury and trauma; Z91.013 Allergy to seafood; Z91.14 Patient's other noncompliance with medication regimen
CPT/HCPCS: C9803; U0003

== ENCOUNTER 2020-09-13 15:47 | Inpatient (IN) | payer OTHER ==
[2020-09-13 18:17] VITALS: BMI 21.7
[2020-09-13] MEDS ORDERED: NICOTINE POLACRILEX 2 MG GUM BUC PRN (21:59)
[2020-09-13] MEDS ORDERED: MENTHOL/PHENOL 1 EACH UD MM PRN (21:59)
[2020-09-13] MEDS ORDERED: BISMUTH SUBSALICYLATE 524 MG/30 ML PO PRN (21:59)
[2020-09-13] MEDS ORDERED: ONDANSETRON *ODT* 4 MG TABLET SL PRN (21:59)
[2020-09-13] MEDS ORDERED: MAG HYDROX/AL HYDROX/SIMETH 30 ML UNIT-DOSE CUP PO PRN (21:59)
[2020-09-13] MEDS ORDERED: ACETAMINOPHEN 325 MG TABLET (FP) PO PRN ×2 (21:59)
[2020-09-13] MEDS ORDERED: MAGNESIUM CITRATE 300 ML BOTTLE PO PRN (21:59)
[2020-09-13] MEDS ORDERED: IBUPROFEN 400 MG TABLET (FP) PO PRN (21:59)
[2020-09-13] MEDS ORDERED: MAGNESIUM HYDROX 2400MG/30ML ORAL SUSPENSION 30 ML CUP PO PRN (21:59)
[2020-09-13] MEDS ORDERED: METHADONE HCL 10 MG TABLET (FOR DETOX USE ONLY) PO ONE (22:01)
[2020-09-13] MEDS: hydrOXYzine PAMOATE 25 MG CAPSULE (FP) PO SCH (23:32)
[2020-09-13] MEDS: METHOCARBAMOL 500 MG TABLET PO PRN (23:32)
[2020-09-13] MEDS: MELATONIN 5 MG TABLETS PO SCH (23:35)
[2020-09-13] MEDS: THIAMINE HCL 100 MG TABLET (FP) PO SCH (23:35)
[2020-09-13] MEDS: cloNIDine HCL 0.1 MG TABLET PO PRN (23:39)
[2020-09-14] MEDS: hydrOXYzine PAMOATE 25 MG CAPSULE (FP) PO SCH ×2 (06:03→10:22)
[2020-09-14] MEDS ORDERED: METHADONE HCL 5 MG TABLET (FOR DETOX USE ONLY) ONE (09:01)
[2020-09-14] MEDS ORDERED: METHADONE HCL 10 MG TABLET (FOR DETOX USE ONLY) ONE (09:01)
[2020-09-14] MEDS ORDERED: METHADONE (DETOX) 20 MG, METHADONE (DETOX) 5 MG PO ONE (10:00)
[2020-09-14] MEDS: PRENATAL VITAMINS W/ FOLIC ACID TABLET (FP) PO SCH (10:21)
[2020-09-14] MEDS: METHOCARBAMOL 500 MG TABLET PO PRN (10:22)
[2020-09-14 11:09] LABS: HEMATOCRIT 36.7 % (35.4-49); HEMOGLOBIN 12.1 GM/dL (11.7-16.9); MCH 29.6 pg (25.7-33.7); MEAN CELL VOLUME 89.5 fl (80-96); MEAN PLT VOLUME 8.2 fl (7.5-11.1); PLATELET COUNT 287 10^3/uL (134-434); RBC 4.11 M/mm3 (4.00-5.60); RDW 14.4 % (11.9-15.9); WHITE BLOOD COUNT 10.1 K/mm3 (4.0-10.0)
[2020-09-14 11:24] LABS: CALCIUM 9.2 mg/dL (8.5-10.1)
[2020-09-14 11:25] LABS: ALBUMIN 3.7 g/dl (3.4-5.0); BLOOD UREA NITROGEN 15.3 mg/dL (7-18)
[2020-09-14 11:28] LABS: CREATININE 1.3 mg/dL (0.55-1.3)
[2020-09-14 11:30] LABS: BILIRUBIN,TOTAL 0.7 mg/dL (0.2-1); TOT PROT 6.8 g/dl (6.4-8.2)
[2020-09-14] MEDS ORDERED: hydrOXYzine PAMOATE 25 MG CAPSULE (FP) PO PRN (12:08)
[2020-09-14] MEDS: cloNIDine HCL 0.1 MG TABLET PO PRN ×2 (13:20→22:16)
[2020-09-14] MEDS: QUEtiapine FUMARATE 100 MG TABLET (FP) PO SCH (22:16)
[2020-09-14] MEDS: THIAMINE HCL 100 MG TABLET (FP) PO SCH (22:16)
[2020-09-14] MEDS: MELATONIN 5 MG TABLETS PO SCH (22:16)
[2020-09-15] MEDS ORDERED: METHADONE HCL 10 MG TABLET (FOR DETOX USE ONLY) PO ONE (10:00)
[2020-09-15] MEDS: PRENATAL VITAMINS W/ FOLIC ACID TABLET (FP) PO SCH (10:02)
[2020-09-15] MEDS: FLUoxetine HCL 20 MG CAPSULE PO SCH (10:02)
[2020-09-15] MEDS ORDERED: IBUPROFEN 400 MG TABLET (FP) PO PRN (10:03)
[2020-09-15] MEDS ORDERED: LIDOCAINE 5% TOPICAL PATCH TP ONE (10:03)
[2020-09-15] MEDS: cloNIDine HCL 0.1 MG TABLET PO PRN ×2 (10:03→18:24)
[2020-09-15 14:10] LABS: SARS-CoV-2 NAA Not Detected (Not Detected)
[2020-09-15] MEDS: THIAMINE HCL 100 MG TABLET (FP) PO SCH (21:11)
[2020-09-15] MEDS: QUEtiapine FUMARATE 100 MG TABLET (FP) PO SCH (21:11)
[2020-09-15] MEDS: MELATONIN 5 MG TABLETS PO SCH (21:12)
[2020-09-15] MEDS: LIDOCAINE PATCH REMOVAL MC SCH (23:02)
[2020-09-16] MEDS ORDERED: METHADONE HCL 5 MG TABLET (FOR DETOX USE ONLY) ONE (08:35)
[2020-09-16] MEDS ORDERED: METHADONE HCL 10 MG TABLET (FOR DETOX USE ONLY) ONE (08:35)
[2020-09-16] MEDS ORDERED: METHADONE (DETOX) 10 MG, METHADONE (DETOX) 5 MG PO ONE (10:00)
[2020-09-16] MEDS: LIDOCAINE 5% TOPICAL PATCH TP SCH (10:17)
[2020-09-16] MEDS: FLUoxetine HCL 20 MG CAPSULE PO SCH (10:17)
[2020-09-16] MEDS: PRENATAL VITAMINS W/ FOLIC ACID TABLET (FP) PO SCH (10:21)
[2020-09-16] MEDS: MELATONIN 5 MG TABLETS PO SCH (22:24)
[2020-09-16] MEDS: THIAMINE HCL 100 MG TABLET (FP) PO SCH (22:24)
[2020-09-16] MEDS: QUEtiapine FUMARATE 100 MG TABLET (FP) PO SCH (22:24)
[2020-09-16] MEDS: LIDOCAINE PATCH REMOVAL MC SCH (22:25)
[2020-09-17] MEDS ORDERED: METHADONE HCL 10 MG TABLET (FOR DETOX USE ONLY) PO ONE (10:00)
[2020-09-17] MEDS: LIDOCAINE 5% TOPICAL PATCH TP SCH (11:01)
[2020-09-17] MEDS: PRENATAL VITAMINS W/ FOLIC ACID TABLET (FP) PO SCH (11:03)
[2020-09-17] MEDS: FLUoxetine HCL 20 MG CAPSULE PO SCH (11:03)
[2020-09-17] MEDS: THIAMINE HCL 100 MG TABLET (FP) PO SCH (22:14)
[2020-09-17] MEDS: QUEtiapine FUMARATE 100 MG TABLET (FP) PO SCH (22:14)
[2020-09-17] MEDS: MELATONIN 5 MG TABLETS PO SCH (22:14)
[2020-09-17] MEDS: LIDOCAINE PATCH REMOVAL MC SCH (22:17)
[2020-09-18] MEDS ORDERED: METHADONE HCL 5 MG TABLET (FOR DETOX USE ONLY) PO ONE (06:00)
[2020-09-18 08:10] VITALS: TEMP 96.9
[2020-09-18 09:18] VITALS: BP 174/95; PULSE 69
[2020-09-18] MEDS: FLUoxetine HCL 20 MG CAPSULE PO SCH (10:06)
[2020-09-18] MEDS: LIDOCAINE 5% TOPICAL PATCH TP SCH (10:06)
[2020-09-18] MEDS: PRENATAL VITAMINS W/ FOLIC ACID TABLET (FP) PO SCH (10:06)
== END 2020-09-18 12:49 | disposition other institution (70) | DRG 773 ==
LOC: YASAS 15:47 → Y3N 22:33
PROVIDERS: ADMIT Allergy & Immunology; ATTEND Allergy & Immunology
PROC: HZ2ZZZZ Detoxification Services for Substance Abuse Treatment (ICD-10-PCS; principal; 2020-09-13)
DX: F11.23 Opioid dependence with withdrawal (principal); F13.20 Sedative, hypnotic or anxiolytic dependence, uncomplicated; F12.20 Cannabis dependence, uncomplicated; F17.210 Nicotine dependence, cigarettes, uncomplicated; F19.24 Other psychoactive substance dependence with psychoactive substance-induced mood disorder; F31.9 Bipolar disorder, unspecified; F43.10 Post-traumatic stress disorder, unspecified; M54.5 Low back pain; G89.29 Other chronic pain; G47.00 Insomnia, unspecified; R73.03 Prediabetes; Z91.14 Patient's other noncompliance with medication regimen; Z91.013 Allergy to seafood; S00.31XA Abrasion of nose, initial encounter; M79.602 Pain in left arm; W19.XXXA Unspecified fall, initial encounter; Y93.89 Activity, other specified; Y92.9 Unspecified place or not applicable
CPT/HCPCS: 36415; 70160-TC-FY; 73090-TC-LT-FY; 80053; 85027; 86780; 90853; C9803; J0735; U0003; U0005

== ENCOUNTER 2020-09-18 12:51 | Inpatient (IN) | payer OTHER ==
[2020-09-18] MEDS ORDERED: P-EPHED 60MG/TRIPROLIDI 2.5MG TABLET PO PRN (13:58)
[2020-09-18] MEDS ORDERED: MAG HYDROX/AL HYDROX/SIMETH 30 ML UNIT-DOSE CUP PO PRN (13:58)
[2020-09-18] MEDS ORDERED: MENTHOL/PHENOL 1 EACH UD MM PRN (13:58)
[2020-09-18] MEDS ORDERED: MAGNESIUM CITRATE 300 ML BOTTLE PO PRN (13:58)
[2020-09-18] MEDS ORDERED: MAGNESIUM HYDROX 2400MG/30ML ORAL SUSPENSION 30 ML CUP PO PRN (13:58)
[2020-09-18] MEDS ORDERED: LOPERAMIDE HCL 2 MG CAPSULE PO PRN (13:58)
[2020-09-18] MEDS ORDERED: IBUPROFEN 400 MG TABLET (FP) PO PRN (13:58)
[2020-09-18] MEDS ORDERED: ACETAMINOPHEN 325 MG TABLET (FP) PO PRN (13:58)
[2020-09-18] MEDS ORDERED: guaiFENesin 200 MG/10 ML 10 ML UNIT-DOSE CUPS PO PRN (13:58)
[2020-09-18] MEDS ORDERED: NICOTINE POLACRILEX 2 MG GUM BUC PRN (13:58)
[2020-09-18] MEDS ORDERED: amLODIPine BESYLATE 5 MG TABLET (FP) PO ONE (14:02)
[2020-09-18] MEDS: hydrOXYzine PAMOATE 25 MG CAPSULE (FP) PO SCH ×3 (15:00→21:03)
[2020-09-18] MEDS: MELATONIN 5 MG TABLETS PO SCH (21:02)
[2020-09-18] MEDS: THIAMINE HCL 100 MG TABLET (FP) PO SCH (21:02)
[2020-09-19] MEDS: hydrOXYzine PAMOATE 25 MG CAPSULE (FP) PO SCH ×5 (06:39→21:27)
[2020-09-19] MEDS ORDERED: cloNIDine HCL 0.1 MG TABLET PO ONE (07:26)
[2020-09-19] MEDS ORDERED: amLODIPine BESYLATE 5 MG TABLET (FP) PO SCH (10:00)
[2020-09-19] MEDS ORDERED: amLODIPine BESYLATE 2.5 MG TABLET (FP) PO SCH (10:00)
[2020-09-19] MEDS: PRENATAL VITAMINS W/ FOLIC ACID TABLET (FP) PO SCH (10:34)
[2020-09-19] MEDS: amLODIPine BESYLATE 2.5 MG TABLET (FP) PO SCH (10:34)
[2020-09-19] MEDS: NICOTINE 7 MG/24 HOURS TOPICAL PATCH TD SCH (10:34)
[2020-09-19] MEDS: THIAMINE HCL 100 MG TABLET (FP) PO SCH (21:27)
[2020-09-19] MEDS: MELATONIN 5 MG TABLETS PO SCH (21:27)
[2020-09-20] MEDS: amLODIPine BESYLATE 2.5 MG TABLET (FP) PO SCH (06:33)
[2020-09-20] MEDS: hydrOXYzine PAMOATE 25 MG CAPSULE (FP) PO SCH ×5 (06:33→21:01)
[2020-09-20] MEDS: PRENATAL VITAMINS W/ FOLIC ACID TABLET (FP) PO SCH (10:28)
[2020-09-20] MEDS: NICOTINE 7 MG/24 HOURS TOPICAL PATCH TD SCH (10:29)
[2020-09-20] MEDS: MELATONIN 5 MG TABLETS PO SCH (21:01)
[2020-09-20] MEDS: THIAMINE HCL 100 MG TABLET (FP) PO SCH (21:01)
[2020-09-21] MEDS: amLODIPine BESYLATE 2.5 MG TABLET (FP) PO SCH (06:37)
[2020-09-21] MEDS: hydrOXYzine PAMOATE 25 MG CAPSULE (FP) PO SCH ×5 (06:37→21:41)
[2020-09-21] MEDS: PRENATAL VITAMINS W/ FOLIC ACID TABLET (FP) PO SCH (10:28)
[2020-09-21] MEDS: NICOTINE 7 MG/24 HOURS TOPICAL PATCH TD SCH (10:29)
[2020-09-21] MEDS ORDERED: COVID-19 VAC,AD26(JANSSEN)/PF 0.5 ML IM ONE (11:00)
[2020-09-21] MEDS: THIAMINE HCL 100 MG TABLET (FP) PO SCH (21:40)
[2020-09-21] MEDS: MELATONIN 5 MG TABLETS PO SCH (21:40)
[2020-09-21] MEDS ORDERED: QUEtiapine FUMARATE 100 MG TABLET (FP) PO ONE (22:17)
[2020-09-22] MEDS: hydrOXYzine PAMOATE 25 MG CAPSULE (FP) PO SCH ×5 (06:11→21:02)
[2020-09-22] MEDS: amLODIPine BESYLATE 2.5 MG TABLET (FP) PO SCH (06:11)
[2020-09-22] MEDS: PRENATAL VITAMINS W/ FOLIC ACID TABLET (FP) PO SCH (10:27)
[2020-09-22] MEDS: NICOTINE 7 MG/24 HOURS TOPICAL PATCH TD SCH (10:27)
[2020-09-22] MEDS: FLUoxetine HCL 20 MG CAPSULE PO SCH (12:48)
[2020-09-22] MEDS: THIAMINE HCL 100 MG TABLET (FP) PO SCH (21:02)
[2020-09-22] MEDS: QUEtiapine FUMARATE 200 MG TABLET PO SCH (21:02)
[2020-09-22] MEDS: MELATONIN 5 MG TABLETS PO SCH (21:02)
[2020-09-22] MEDS ORDERED: QUEtiapine FUMARATE 100 MG TABLET (FP) PO SCH (22:00)
[2020-09-23] MEDS: amLODIPine BESYLATE 2.5 MG TABLET (FP) PO SCH (06:37)
[2020-09-23] MEDS: hydrOXYzine PAMOATE 25 MG CAPSULE (FP) PO SCH ×5 (06:37→21:48)
[2020-09-23] MEDS: FLUoxetine HCL 20 MG CAPSULE PO SCH (09:42)
[2020-09-23] MEDS: NICOTINE 7 MG/24 HOURS TOPICAL PATCH TD SCH (09:43)
[2020-09-23] MEDS: PRENATAL VITAMINS W/ FOLIC ACID TABLET (FP) PO SCH (09:43)
[2020-09-23] MEDS: MELATONIN 5 MG TABLETS PO SCH (21:48)
[2020-09-23] MEDS: QUEtiapine FUMARATE 200 MG TABLET PO SCH (21:48)
[2020-09-23] MEDS: THIAMINE HCL 100 MG TABLET (FP) PO SCH (21:48)
[2020-09-24] MEDS: hydrOXYzine PAMOATE 25 MG CAPSULE (FP) PO SCH ×5 (06:30→21:05)
[2020-09-24] MEDS: amLODIPine BESYLATE 2.5 MG TABLET (FP) PO SCH (06:30)
[2020-09-24] MEDS: NICOTINE 7 MG/24 HOURS TOPICAL PATCH TD SCH (10:14)
[2020-09-24] MEDS: PRENATAL VITAMINS W/ FOLIC ACID TABLET (FP) PO SCH (10:14)
[2020-09-24] MEDS: FLUoxetine HCL 20 MG CAPSULE PO SCH (10:14)
[2020-09-24] MEDS: MELATONIN 5 MG TABLETS PO SCH (21:05)
[2020-09-24] MEDS: QUEtiapine FUMARATE 200 MG TABLET PO SCH (21:05)
[2020-09-24] MEDS: THIAMINE HCL 100 MG TABLET (FP) PO SCH (21:05)
[2020-09-25] MEDS: amLODIPine BESYLATE 2.5 MG TABLET (FP) PO SCH (06:32)
[2020-09-25] MEDS: hydrOXYzine PAMOATE 25 MG CAPSULE (FP) PO SCH ×5 (06:33→22:01)
[2020-09-25] MEDS: FLUoxetine HCL 20 MG CAPSULE PO SCH (10:24)
[2020-09-25] MEDS: PRENATAL VITAMINS W/ FOLIC ACID TABLET (FP) PO SCH (10:24)
[2020-09-25] MEDS: NICOTINE 7 MG/24 HOURS TOPICAL PATCH TD SCH (10:24)
[2020-09-25] MEDS: MELATONIN 5 MG TABLETS PO SCH (21:59)
[2020-09-25] MEDS: THIAMINE HCL 100 MG TABLET (FP) PO SCH (21:59)
[2020-09-25] MEDS: QUEtiapine FUMARATE 200 MG TABLET PO SCH (22:00)
[2020-09-26] MEDS: hydrOXYzine PAMOATE 25 MG CAPSULE (FP) PO SCH (06:24)
[2020-09-26] MEDS: amLODIPine BESYLATE 2.5 MG TABLET (FP) PO SCH (06:24)
[2020-09-26] MEDS: FLUoxetine HCL 20 MG CAPSULE PO SCH (10:10)
[2020-09-26] MEDS: hydrOXYzine PAMOATE 25 MG CAPSULE (FP) PO PRN (10:10)
[2020-09-26] MEDS: PRENATAL VITAMINS W/ FOLIC ACID TABLET (FP) PO SCH (10:10)
[2020-09-26] MEDS: NICOTINE 7 MG/24 HOURS TOPICAL PATCH TD SCH (10:11)
[2020-09-26] MEDS: MELATONIN 5 MG TABLETS PO SCH (21:13)
[2020-09-26] MEDS: QUEtiapine FUMARATE 200 MG TABLET PO SCH (21:13)
[2020-09-26] MEDS: THIAMINE HCL 100 MG TABLET (FP) PO SCH (21:13)
[2020-09-27] MEDS: amLODIPine BESYLATE 2.5 MG TABLET (FP) PO SCH (06:03)
[2020-09-27] MEDS: FLUoxetine HCL 20 MG CAPSULE PO SCH (10:16)
[2020-09-27] MEDS: PRENATAL VITAMINS W/ FOLIC ACID TABLET (FP) PO SCH (10:16)
[2020-09-27] MEDS: NICOTINE 7 MG/24 HOURS TOPICAL PATCH TD SCH (10:17)
[2020-09-27] MEDS: BUPRENORPHINE/NALOXONE 4 MG/1 MG FILM PACKET SL SCH ×2 (17:31→21:52)
[2020-09-27] MEDS: QUEtiapine FUMARATE 200 MG TABLET PO SCH (21:49)
[2020-09-27] MEDS: hydrOXYzine PAMOATE 25 MG CAPSULE (FP) PO PRN (21:49)
[2020-09-27] MEDS: THIAMINE HCL 100 MG TABLET (FP) PO SCH (21:49)
[2020-09-27] MEDS: SUVOREXANT 10 MG TABLET PO PRN (21:51)
[2020-09-28] MEDS: amLODIPine BESYLATE 2.5 MG TABLET (FP) PO SCH (06:03)
[2020-09-28] MEDS: COLLOIDAL OATMEAL 1 BAR EACH TP PRN (06:22)
[2020-09-28] MEDS ORDERED: PT OWN MED DRAWER 7, Y5N ONE (09:21)
[2020-09-28] MEDS ORDERED: PRAMOXINE HCL 1% (SARNA SENSITIVE) 222 ML BOTTLE TP SCH (10:00)
[2020-09-28] MEDS: PRENATAL VITAMINS W/ FOLIC ACID TABLET (FP) PO SCH (10:18)
[2020-09-28] MEDS: NICOTINE 7 MG/24 HOURS TOPICAL PATCH TD SCH (10:18)
[2020-09-28] MEDS: FLUoxetine HCL 20 MG CAPSULE PO SCH (10:18)
[2020-09-28] MEDS: BUPRENORPHINE/NALOXONE 4 MG/1 MG FILM PACKET SL SCH ×2 (10:19→21:08)
[2020-09-28] MEDS ORDERED: MINERAL OIL/PETROLAT/WATER TOPICAL CREAM 454 GM JAR TP PRN (10:46)
[2020-09-28] MEDS: SUVOREXANT 10 MG TABLET PO PRN (21:06)
[2020-09-28] MEDS: THIAMINE HCL 100 MG TABLET (FP) PO SCH (21:09)
[2020-09-28] MEDS: QUEtiapine FUMARATE 200 MG TABLET PO SCH (21:09)
[2020-09-29] MEDS: amLODIPine BESYLATE 2.5 MG TABLET (FP) PO SCH (05:58)
[2020-09-29] MEDS: PRENATAL VITAMINS W/ FOLIC ACID TABLET (FP) PO SCH (10:03)
[2020-09-29] MEDS: NICOTINE 7 MG/24 HOURS TOPICAL PATCH TD SCH (10:03)
[2020-09-29] MEDS: FLUoxetine HCL 20 MG CAPSULE PO SCH (10:03)
[2020-09-29] MEDS: BUPRENORPHINE/NALOXONE 4 MG/1 MG FILM PACKET SL SCH ×2 (10:03→21:41)
[2020-09-29] MEDS: QUEtiapine FUMARATE 200 MG TABLET PO SCH (21:40)
[2020-09-29] MEDS: hydrOXYzine PAMOATE 25 MG CAPSULE (FP) PO PRN (21:40)
[2020-09-29] MEDS: THIAMINE HCL 100 MG TABLET (FP) PO SCH (21:40)
[2020-09-29] MEDS: SUVOREXANT 10 MG TABLET PO PRN (21:42)
[2020-09-30] MEDS: amLODIPine BESYLATE 2.5 MG TABLET (FP) PO SCH (06:30)
[2020-09-30] MEDS: PRENATAL VITAMINS W/ FOLIC ACID TABLET (FP) PO SCH (10:12)
[2020-09-30] MEDS: hydrOXYzine PAMOATE 25 MG CAPSULE (FP) PO PRN (10:12)
[2020-09-30] MEDS: FLUoxetine HCL 20 MG CAPSULE PO SCH (10:12)
[2020-09-30] MEDS: BUPRENORPHINE/NALOXONE 4 MG/1 MG FILM PACKET SL SCH ×2 (10:12→21:00)
[2020-09-30] MEDS: NICOTINE 7 MG/24 HOURS TOPICAL PATCH TD SCH (10:13)
[2020-09-30] MEDS: METHOCARBAMOL 500 MG TABLET PO SCH ×2 (13:16→21:00)
[2020-09-30] MEDS: QUEtiapine FUMARATE 200 MG TABLET PO SCH (21:00)
[2020-09-30] MEDS: THIAMINE HCL 100 MG TABLET (FP) PO SCH (21:00)
[2020-09-30] MEDS ORDERED: SUVOREXANT 10 MG TABLET PO PRN (22:00)
[2020-10-01] MEDS: amLODIPine BESYLATE 2.5 MG TABLET (FP) PO SCH (06:07)
[2020-10-01] MEDS: METHOCARBAMOL 500 MG TABLET PO SCH ×3 (06:08→22:01)
[2020-10-01] MEDS: NICOTINE 7 MG/24 HOURS TOPICAL PATCH TD SCH (10:27)
[2020-10-01] MEDS: PRENATAL VITAMINS W/ FOLIC ACID TABLET (FP) PO SCH (10:27)
[2020-10-01] MEDS: hydrOXYzine PAMOATE 25 MG CAPSULE (FP) PO PRN (10:27)
[2020-10-01] MEDS: FLUoxetine HCL 20 MG CAPSULE PO SCH (10:27)
[2020-10-01] MEDS: BUPRENORPHINE/NALOXONE 4 MG/1 MG FILM PACKET SL SCH ×2 (10:27→22:02)
[2020-10-01] MEDS: THIAMINE HCL 100 MG TABLET (FP) PO SCH (22:01)
[2020-10-01] MEDS: QUEtiapine FUMARATE 200 MG TABLET PO SCH (22:01)
[2020-10-02] MEDS: amLODIPine BESYLATE 2.5 MG TABLET (FP) PO SCH (06:21)
[2020-10-02] MEDS: METHOCARBAMOL 500 MG TABLET PO SCH ×3 (06:21→21:01)
[2020-10-02] MEDS: NICOTINE 7 MG/24 HOURS TOPICAL PATCH TD SCH (10:07)
[2020-10-02] MEDS: PRENATAL VITAMINS W/ FOLIC ACID TABLET (FP) PO SCH (10:07)
[2020-10-02] MEDS: hydrOXYzine PAMOATE 25 MG CAPSULE (FP) PO PRN (10:07)
[2020-10-02] MEDS: FLUoxetine HCL 20 MG CAPSULE PO SCH (10:07)
[2020-10-02] MEDS: BUPRENORPHINE/NALOXONE 4 MG/1 MG FILM PACKET SL SCH ×2 (10:08→21:02)
[2020-10-02] MEDS: COLLOIDAL OATMEAL 1 BAR EACH TP PRN (10:10)
[2020-10-02] MEDS: QUEtiapine FUMARATE 200 MG TABLET PO SCH (21:02)
[2020-10-02] MEDS: THIAMINE HCL 100 MG TABLET (FP) PO SCH (21:02)
[2020-10-03] MEDS: METHOCARBAMOL 500 MG TABLET PO SCH ×3 (06:30→21:36)
[2020-10-03] MEDS: amLODIPine BESYLATE 2.5 MG TABLET (FP) PO SCH (06:30)
[2020-10-03] MEDS: PRENATAL VITAMINS W/ FOLIC ACID TABLET (FP) PO SCH (10:34)
[2020-10-03] MEDS: FLUoxetine HCL 20 MG CAPSULE PO SCH (10:34)
[2020-10-03] MEDS: hydrOXYzine PAMOATE 25 MG CAPSULE (FP) PO PRN (10:34)
[2020-10-03] MEDS: NICOTINE 7 MG/24 HOURS TOPICAL PATCH TD SCH (10:34)
[2020-10-03] MEDS: BUPRENORPHINE/NALOXONE 4 MG/1 MG FILM PACKET SL SCH ×2 (10:35→21:36)
[2020-10-03] MEDS: QUEtiapine FUMARATE 200 MG TABLET PO SCH (21:36)
[2020-10-03] MEDS: THIAMINE HCL 100 MG TABLET (FP) PO SCH (21:36)
[2020-10-03] MEDS: SUVOREXANT 15 MG TABLET PO PRN (21:37)
[2020-10-03] MEDS ORDERED: SUVOREXANT 10 MG TABLET PO PRN (22:00)
[2020-10-04] MEDS: METHOCARBAMOL 500 MG TABLET PO SCH ×3 (06:59→21:01)
[2020-10-04] MEDS: amLODIPine BESYLATE 2.5 MG TABLET (FP) PO SCH (06:59)
[2020-10-04] MEDS: PRENATAL VITAMINS W/ FOLIC ACID TABLET (FP) PO SCH (10:12)
[2020-10-04] MEDS: FLUoxetine HCL 20 MG CAPSULE PO SCH (10:12)
[2020-10-04] MEDS: NICOTINE 7 MG/24 HOURS TOPICAL PATCH TD SCH (10:12)
[2020-10-04] MEDS: BUPRENORPHINE/NALOXONE 4 MG/1 MG FILM PACKET SL SCH ×2 (10:13→17:59)
[2020-10-04] MEDS: QUEtiapine FUMARATE 200 MG TABLET PO SCH (21:01)
[2020-10-04] MEDS: SUVOREXANT 15 MG TABLET PO PRN (21:01)
[2020-10-04] MEDS: THIAMINE HCL 100 MG TABLET (FP) PO SCH (21:01)
[2020-10-05] MEDS: METHOCARBAMOL 500 MG TABLET PO SCH ×3 (08:09→21:33)
[2020-10-05] MEDS: amLODIPine BESYLATE 2.5 MG TABLET (FP) PO SCH (08:09)
[2020-10-05] MEDS: PRENATAL VITAMINS W/ FOLIC ACID TABLET (FP) PO SCH (10:55)
[2020-10-05] MEDS: BUPRENORPHINE/NALOXONE 4 MG/1 MG FILM PACKET SL SCH (10:55)
[2020-10-05] MEDS: FLUoxetine HCL 20 MG CAPSULE PO SCH (10:55)
[2020-10-05] MEDS: NICOTINE 7 MG/24 HOURS TOPICAL PATCH TD SCH (10:55)
[2020-10-05] MEDS ORDERED: BUPRENORPHINE HCL 2 MG TAB.SUBL SL ONE (14:23)
[2020-10-05] MEDS ORDERED: BUPRENORPHINE/NALOXONE 4 MG/1 MG FILM PACKET SL ONE (14:51)
[2020-10-05] MEDS: QUEtiapine FUMARATE 200 MG TABLET PO SCH (21:33)
[2020-10-05] MEDS: THIAMINE HCL 100 MG TABLET (FP) PO SCH (21:33)
[2020-10-05] MEDS: hydrOXYzine PAMOATE 25 MG CAPSULE (FP) PO PRN (21:33)
[2020-10-05] MEDS: SUVOREXANT 15 MG TABLET PO PRN (21:34)
[2020-10-06] MEDS ORDERED: PT OWN MED DRAWER 7, Y5N ONE (06:08)
[2020-10-06] MEDS: METHOCARBAMOL 500 MG TABLET PO SCH (06:19)
[2020-10-06] MEDS: amLODIPine BESYLATE 2.5 MG TABLET (FP) PO SCH (06:19)
[2020-10-06 07:56] VITALS: BP 138/95; PULSE 72; TEMP 98
== END 2020-10-06 06:15 | disposition home or self-care (01) | DRG 772 ==
LOC: YASAS 12:51 → Y3W 12:52
PROVIDERS: ADMIT Allergy & Immunology; ATTEND Allergy & Immunology
PROC: HZ42ZZZ Group Counseling for Substance Abuse Treatment, Cognitive-Behavioral (ICD-10-PCS; principal; 2020-09-18)
DX: F11.20 Opioid dependence, uncomplicated (principal); F17.210 Nicotine dependence, cigarettes, uncomplicated; F31.9 Bipolar disorder, unspecified; F43.10 Post-traumatic stress disorder, unspecified; F19.24 Other psychoactive substance dependence with psychoactive substance-induced mood disorder; F19.282 Other psychoactive substance dependence with psychoactive substance-induced sleep disorder; I10 Essential (primary) hypertension; E11.9 Type 2 diabetes mellitus without complications; M54.5 Low back pain; G89.29 Other chronic pain; S60.511A Abrasion of right hand, initial encounter; W22.8XXA Striking against or struck by other objects, initial encounter; Y93.89 Activity, other specified; Y92.239 Unspecified place in hospital as the place of occurrence of the external cause; Z56.0 Unemployment, unspecified
CPT/HCPCS: 0031A; 91303; J0735

== ENCOUNTER 2020-09-19 15:49 | Emergency (ER) | payer OTHER ==
[2020-09-19 16:07] VITALS: BP 164/105; PULSE 64; TEMP 98; BMI 22.3
== END 2020-09-19 20:45 | disposition home or self-care (01) ==
LOC: JERFT 15:49 → JER 15:49
DX: S09.93XA Unspecified injury of face, initial encounter (principal)
CPT/HCPCS: 70486-TC; 72125-TC; 99284-25